=== PATIENT | female | born 1945 | race Caucasian/White ===

== ENCOUNTER 2018-04-11 17:17 | Emergency (ER) | payer MEDICARE, SELFPAY ==
[2018-04-11 17:20] VITALS: BP 173/83; PULSE 99; RESP 16; TEMP 37.4; O2SAT 95; BMI 25.7
--- NOTE | 2018-04-11 17:47 | PC.NURSE ---
hx of scoliosis. pt reports woke up monday with right scapular pain, the next day spread to her left scapular, now pain radiating up to the posterior neck. denies injuries/trauma. pt reports she has been coughing for 4 months, pain worsen with movement, better at rest. denies fever or vomiting. pt has been taking aspirin 325mg 3 tabs every 5 hours today. on asssessment, pt alert and awake, cooperative with care tender to palpate neck and bilateral scapular. pt with good strong equal octave board assembler upper extremites. +dcms intact. pt able to flex and extend , side to side of neck . c/o ipsilateral pain with movement. requesting pain medication for comfort.
--- NOTE | 2018-04-11 17:59 | ED.NECK ---
HPI - Neck Pain/Injury <LYNDA Markham - Last Filed: 04/11/18 21:51> General Chief Complaint: Neck Pain/Injury Stated Complaint: shoulder and neck pain Time Seen by Provider: 04/11/18 17:19 Source: patient Mode of arrival: ambulatory Limitations: no limitations History of Present Illness HPI Narrative: 73-year-old female with history of hypertension and is a former smoker here for complaint of pain into bilateral neck for the past couple of days. She states she woke up with a pain on the right but then it migrated over to the left side. She states that it is increased pain with movement of her head left and right. She denies any trauma to the area. She denies any strenuous activities. No falls. She denies any loss of bladder or bowel control. She is ambulatory into the emergency room. No concerns or complaints at this timeframe. Related Data Home Medications Medication Instructions Recorded Confirmed amlodipine [Norvasc] 5 mg PO DAILY 04/11/18 04/11/18 atorvastatin 20 mg PO BEDTIME 04/11/18 04/11/18 fluoxetine 60 mg PO DAILY 04/11/18 04/11/18 losartan 100 mg PO DAILY 04/11/18 04/11/18 nortriptyline 50 mg PO DAILY 04/11/18 04/11/18 quetiapine 100 mg PO DAILY 04/11/18 04/11/18 Previous Rx's Medication Instructions Recorded aspirin 81 mg PO QDAY #30 tab 12/19/15 cyclobenzaprine 10 mg PO TID PRN #15 tab 04/11/18 Allergies Allergy/AdvReac Type Severity Reaction Status Date / Time No Known Drug Allergies Allergy Verified 04/11/18 18:25 Review of Systems <LYNDA Markham - Last Filed: 04/11/18 21:51> Constitutional Denies chills, Denies fever(s), Denies lethargy and Denies weakness Eyes Denies change in vision, Denies eye discharge, Denies irritation and Denies loss of vision ENT Ears, Nose, Mouth, and Throat: Denies change in voice, Denies neck pain and Denies sore throat Cardiovascular Denies chest pain, Denies irregular heart rhythm, Denies lightheadedness, Denies palpitations, Denies dyspnea, Denies dyspnea on exertion and Denies orthopnea Respiratory Denies cough, Denies dyspnea, Denies dyspnea on exertion and Denies wheezing Gastrointestinal Gastrointestinal: Denies abdominal pain, Denies change in bowel habits, Denies diarrhea, Denies nausea and Denies vomiting Genitourinary Denies hematuria, Denies flank pain, Denies urinary incontinence and Denies urinary urgency Musculoskeletal Denies neck pain Comments: Tenderness and stiffness to bilateral sides of the neck radiating into the shoulders Integumentary/Breasts Denies pruritus, Denies erythema, Denies rash and Denies wounds Neurologic Denies loss of vision and Denies weakness Endocrine Denies palpitations Allergic/Immunologic Denies wheezing PFSH <LYNDA Markham - Last Filed: 04/11/18 21:51> Surgical History Status post laminectomy Status post tonsillectomy and adenoidectomy Family History Brother Heart disease Brother Heart disease Father Heart disease Mother Heart disease Social History Smoking Status: Former smoker Family History Brother Heart disease Brother Heart disease Father Heart disease Mother Heart disease Social History Smoking Status: Former smoker Exam <LYNDA Markham - Last Filed: 04/11/18 21:51> Initial Vital Signs Initial Vital Signs: Vital Signs Temperature 99.3 F 04/11/18 17:20 Pulse Rate 99 H 04/11/18 17:20 Respiratory Rate 16 04/11/18 17:20 Blood Pressure 173/83 H 04/11/18 17:20 Pulse Oximetry 95 04/11/18 17:20 Const General: cooperative and well developed Nutritional Appearance: well nourished Orientation: alert, awake, oriented x3 and not confused [facility] Mouth: oral mucosae normal and moist mucous membranes Eyes Conjunctivae: conjunctivae normal Sclera: sclerae normal Pupils: PERRL EOM: EOM intact bilaterally Neck Other: Tenderness on palpation into bilateral cervical paraspinals. No midline tenderness. Muscle tension to bilateral paraspinals radiating into the trapezius areas Resp Effort & Inspection: normal respiratory effort, able to speak in complete sentences, no respiratory distress and no use of accessory muscles Auscultation: clear to auscultation bilaterally, no rales, no rhonchi and no wheezes Cardio Rate: regular rate Rhythm: regular rhythm Heart Sounds: no click, no gallops, no murmurs and no rubs Pulses: normal peripheral pulses Skin General: no rashes or lesions noted, No jaundice and No petechiae Neuro General: alert, oriented x3, gait normal and no focal motor deficits Speech: speech normal <Deirc Manrique DO - Last Filed: 04/11/18 22:14> Initial Vital Signs Initial Vital Signs: Vital Signs Temperature 99.3 F 04/11/18 17:20 Pulse Rate 99 H 04/11/18 17:20 Respiratory Rate 16 04/11/18 17:20 Blood Pressure 173/83 H 04/11/18 17:20 Pulse Oximetry 95 04/11/18 17:20 Course <LYNDA Markham - Last Filed: 04/11/18 21:51> Orders Ordered: Discontinued Medications Cyclobenzaprine HCl (Flexeril) 10 mg PO NOW ONE Stop: 04/11/18 18:09 Last Admin: 04/11/18 18:17 Dose: 10 mg Ibuprofen (Advil) 400 mg PO NOW ONE Stop: 04/11/18 18:09 Last Admin: 04/11/18 18:17 Dose: 400 mg Vital Signs - 8 hr 04/11/18 17:20 04/11/18 18:20 04/11/18 18:46 Temperature 99.3 F Pulse Rate 99 H 85 80 Respiratory Rate 16 17 17 Blood Pressure 173/83 H Blood Pressure [Right Arm] 154/71 H 148/88 H Pulse Oximetry 95 93 94 <Deric Manrique DO - Last Filed: 04/11/18 22:14> Orders Ordered: Discontinued Medications Cyclobenzaprine HCl (Flexeril) 10 mg PO NOW ONE Stop: 04/11/18 18:09 Last Admin: 04/11/18 18:17 Dose: 10 mg Ibuprofen (Advil) 400 mg PO NOW ONE Stop: 04/11/18 18:09 Last Admin: 04/11/18 18:17 Dose: 400 mg Vital Signs - 8 hr 04/11/18 17:20 04/11/18 18:20 04/11/18 18:46 Temperature 99.3 F Pulse Rate 99 H 85 80 Respiratory Rate 16 17 17 Blood Pressure 173/83 H Blood Pressure [Right Arm] 154/71 H 148/88 H Pulse Oximetry 95 93 94 [facility] - Neck Pain/Injury <Surjit MurrietaLYNDA piña - Last Filed: 04/11/18 21:51> [facility] Narrative Medical decision making narrative: Signs and symptoms presents as acute torticollis/muscle strain to the paraspinals of the cervical spine. Nontraumatic injury. Will treat with cyclobenzaprine and hagp-lhq-yrmlyaq ibuprofen. May apply heat to area 20 min at a time a few times a day to help keep muscles loose. Gentle range of motion to painful areas also keep muscles loose. Follow up with primary care provider in the next few days for re-evaluation. For any worsening symptoms return to the emergency room. Discharge Plan Departure Patient Disposition: Home Clinical Impression: Acute torticollis Discharge Date/Time: 04/11/18 19:10 Interventions: ED Discharge Assessment Last Done: 04/11/18 19:26 Instructions: DI for Neck Pain Activity Restrictions/Additional Instructions: Signs and symptoms presents as acute torticollis/strain of neck muscles. Urine prescribed a muscle relaxer called cyclobenzaprine to help keep muscles list use as directed. No driving while on muscle relaxers a can make you drowsy. Also use [id number] ibuprofen for for discomfort. Gentle evpqg-re-fvuosl exercises to painful areas to help keep muscles loose. May use heat to area 20 min at a time a few times a day for the next few days also keep muscles loose. Follow up with her primary care provider. Return emergency room for any worsening symptoms. Prescriptions: New cyclobenzaprine 10 mg tablet 10 mg PO TID PRN (Reason: muscle spasm) Qty: 15 RF: 0 No Action aspirin 81 MG tablet,delayed release (DR/EC) 81 mg PO QDAY Qty: 30 RF: 0 atorvastatin 20 mg tablet 20 mg PO BEDTIME RF: 0 quetiapine 100 mg tablet 100 mg PO DAILY RF: 0 fluoxetine 20 mg tablet 60 mg PO DAILY RF: 0 nortriptyline 50 mg capsule 50 mg PO DAILY RF: 0 amlodipine [Norvasc] 5 MG tablet 5 mg PO DAILY RF: 0 losartan 100 MG tablet 100 mg PO DAILY RF: 0 Referrals: Josefina Powell MD [Primary Care Provider] - <Deric Manrique DO - Last Filed: 04/11/18 22:14> Cosign ED Attending Cosignature Attestation: I was available for consultation during this patient's emergency department encounter
[2018-04-11] MEDS: IBUPROFEN 400 MG TABLET PO (18:17)
[2018-04-11] MEDS: CYCLOBENZAPRINE 10 MG TABLET PO (18:17)
--- NOTE | 2018-04-11 18:17 | ED_ITS ---
HPI - Neck Pain/Injury <LYNDA Markham - Last Filed: 04/11/18 21:51> General Chief Complaint: Neck Pain/Injury Stated Complaint: shoulder and neck pain Time Seen by Provider: 04/11/18 17:19 Source: patient Mode of arrival: ambulatory Limitations: no limitations History of Present Illness HPI Narrative: 73-year-old female with history of hypertension and is a former smoker here for complaint of pain into bilateral neck for the past couple of days. She states she woke up with a pain on the right but then it migrated over to the left side. She states that it is increased pain with movement of her head left and right. She denies any trauma to the area. She denies any strenuous activities. No falls. She denies any loss of bladder or bowel control. She is ambulatory into the emergency room. No concerns or complaints at this timeframe. Related Data Home Medications Medication Instructions Recorded Confirmed amlodipine [Norvasc] 5 mg PO DAILY 04/11/18 04/11/18 atorvastatin 20 mg PO BEDTIME 04/11/18 04/11/18 fluoxetine 60 mg PO DAILY 04/11/18 04/11/18 losartan 100 mg PO DAILY 04/11/18 04/11/18 nortriptyline 50 mg PO DAILY 04/11/18 04/11/18 quetiapine 100 mg PO DAILY 04/11/18 04/11/18 Previous Rx's Medication Instructions Recorded aspirin 81 mg PO QDAY #30 tab 12/19/15 cyclobenzaprine 10 mg PO TID PRN #15 tab 04/11/18 Allergies Allergy/AdvReac Type Severity Reaction Status Date / Time No Known Drug Allergies Allergy Verified 04/11/18 18:25 Review of Systems <LYNDA Markham - Last Filed: 04/11/18 21:51> Constitutional Denies chills, Denies fever(s), Denies lethargy and Denies weakness Eyes Denies change in vision, Denies eye discharge, Denies irritation and Denies loss of vision ENT Ears, Nose, Mouth, and Throat: Denies change in voice, Denies neck pain and Denies sore throat Cardiovascular Denies chest pain, Denies irregular heart rhythm, Denies lightheadedness, Denies palpitations, Denies dyspnea, Denies dyspnea on exertion and Denies orthopnea Respiratory Denies cough, Denies dyspnea, Denies dyspnea on exertion and Denies wheezing Gastrointestinal Gastrointestinal: Denies abdominal pain, Denies change in bowel habits, Denies diarrhea, Denies nausea and Denies vomiting Genitourinary Denies hematuria, Denies flank pain, Denies urinary incontinence and Denies urinary urgency Musculoskeletal Denies neck pain Comments: Tenderness and stiffness to bilateral sides of the neck radiating into the shoulders Integumentary/Breasts Denies pruritus, Denies erythema, Denies rash and Denies wounds Neurologic Denies loss of vision and Denies weakness Endocrine Denies palpitations Allergic/Immunologic Denies wheezing PFSH <LYNDA Markham - Last Filed: 04/11/18 21:51> Surgical History Status post laminectomy Status post tonsillectomy and adenoidectomy Family History Brother Heart disease Brother Heart disease Father Heart disease Mother Heart disease Social History Smoking Status: Former smoker Family History Brother Heart disease Brother Heart disease Father Heart disease Mother Heart disease Social History Smoking Status: Former smoker Exam <LYNDA Markham - Last Filed: 04/11/18 21:51> Initial Vital Signs Initial Vital Signs: Vital Signs Temperature 99.3 F 04/11/18 17:20 Pulse Rate 99 H 04/11/18 17:20 Respiratory Rate 16 04/11/18 17:20 Blood Pressure 173/83 H 04/11/18 17:20 Pulse Oximetry 95 04/11/18 17:20 Const General: cooperative and well developed Nutritional Appearance: well nourished Orientation: alert, awake, oriented x3 and not confused [facility] Mouth: oral mucosae normal and moist mucous membranes Eyes Conjunctivae: conjunctivae normal Sclera: sclerae normal Pupils: PERRL EOM: EOM intact bilaterally Neck Other: Tenderness on palpation into bilateral cervical paraspinals. No midline tenderness. Muscle tension to bilateral paraspinals radiating into the trapezius areas Resp Effort & Inspection: normal respiratory effort, able to speak in complete sentences, no respiratory distress and no use of accessory muscles Auscultation: clear to auscultation bilaterally, no rales, no rhonchi and no wheezes Cardio Rate: regular rate Rhythm: regular rhythm Heart Sounds: no click, no gallops, no murmurs and no rubs Pulses: normal peripheral pulses Skin General: no rashes or lesions noted, No jaundice and No petechiae Neuro General: alert, oriented x3, gait normal and no focal motor deficits Speech: speech normal <Deric Manrique DO - Last Filed: 04/11/18 22:14> Initial Vital Signs Initial Vital Signs: Vital Signs Temperature 99.3 F 04/11/18 17:20 Pulse Rate 99 H 04/11/18 17:20 Respiratory Rate 16 04/11/18 17:20 Blood Pressure 173/83 H 04/11/18 17:20 Pulse Oximetry 95 04/11/18 17:20 Course <LYNDA Markham - Last Filed: 04/11/18 21:51> Orders Ordered: Discontinued Medications Cyclobenzaprine HCl (Flexeril) 10 mg PO NOW ONE Stop: 04/11/18 18:09 Last Admin: 04/11/18 18:17 Dose: 10 mg Ibuprofen (Advil) 400 mg PO NOW ONE Stop: 04/11/18 18:09 Last Admin: 04/11/18 18:17 Dose: 400 mg Vital Signs - 8 hr 04/11/18 17:20 04/11/18 18:20 04/11/18 18:46 Temperature 99.3 F Pulse Rate 99 H 85 80 Respiratory Rate 16 17 17 Blood Pressure 173/83 H Blood Pressure [Right Arm] 154/71 H 148/88 H Pulse Oximetry 95 93 94 <Deric Manrique DO - Last Filed: 04/11/18 22:14> Orders Ordered: Discontinued Medications Cyclobenzaprine HCl (Flexeril) 10 mg PO NOW ONE Stop: 04/11/18 18:09 Last Admin: 04/11/18 18:17 Dose: 10 mg Ibuprofen (Advil) 400 mg PO NOW ONE Stop: 04/11/18 18:09 Last Admin: 04/11/18 18:17 Dose: 400 mg Vital Signs - 8 hr 04/11/18 17:20 04/11/18 18:20 04/11/18 18:46 Temperature 99.3 F Pulse Rate 99 H 85 80 Respiratory Rate 16 17 17 Blood Pressure 173/83 H Blood Pressure [Right Arm] 154/71 H 148/88 H Pulse Oximetry 95 93 94 [facility] - Neck Pain/Injury <LYNDA Markham - Last Filed: 04/11/18 21:51> [facility] Narrative Medical decision making narrative: Signs and symptoms presents as acute torticollis/muscle strain to the paraspinals of the cervical spine. Nontraumatic injury. Will treat with cyclobenzaprine and lgyu-fuw-ndihgcp ibuprofen. May apply heat to area 20 min at a time a few times a day to help keep muscles loose. Gentle range of motion to painful areas also keep muscles loose. Follow up with primary care provider in the next few days for re- evaluation. For any worsening symptoms return to the emergency room. Discharge Plan Departure Patient Disposition: Home Clinical Impression: Acute torticollis Discharge Date/Time: 04/11/18 19:10 Interventions: ED Discharge Assessment Last Done: 04/11/18 19:26 Instructions: DI for Neck Pain Activity Restrictions/Additional Instructions: Signs and symptoms presents as acute torticollis/strain of neck muscles. Urine prescribed a muscle relaxer called cyclobenzaprine to help keep muscles list use as directed. No driving while on muscle relaxers a can make you drowsy. Also use [id number] ibuprofen for for discomfort. Gentle kkkme-oi-octuck ex ercises to painful areas to help keep muscles loose. May use heat to area 20 min at a time a few times a day for the next few days also keep muscles loose. Follow up with her primary care provider. Return emergency room for any worsening symptoms. Prescriptions: New cyclobenzaprine 10 mg tablet 10 mg PO TID PRN (Reason: muscle spasm) Qty: 15 RF: 0 No Action aspirin 81 MG tablet,delayed release (DR/EC) 81 mg PO QDAY Qty: 30 RF: 0 atorvastatin 20 mg tablet 20 mg PO BEDTIME RF: 0 quetiapine 100 mg tablet 100 mg PO DAILY RF: 0 fluoxetine 20 mg tablet 60 mg PO DAILY RF: 0 nortriptyline 50 mg capsule 50 mg PO DAILY RF: 0 amlodipine [Norvasc] 5 MG tablet 5 mg PO DAILY RF: 0 losartan 100 MG tablet 100 mg PO DAILY RF: 0 Referrals: Josefina Powell MD [Primary Care Provider] - <Deric Manrique DO - Last Filed: 04/11/18 22:14> Cosign ED Attending Cosignature Attestation: I was available for consultation during this patient's emergency department encounter
[2018-04-11 18:20] VITALS: BP 154/71; PULSE 85; RESP 17; O2SAT 93
[2018-04-11 18:46] VITALS: BP 148/88; PULSE 80; RESP 17; O2SAT 94
== END 2018-04-11 19:10 | disposition home or self-care (01) ==
PROVIDERS: Emergency Provider Nurse Practitioner Family; Family Provider Family Medicine; PCP Family Medicine
DX: M43.6 Torticollis (principal); S16.1XXA Strain of muscle, fascia and tendon at neck level, initial encounter
CPT/HCPCS: 99282; 99283

== ENCOUNTER → 2019-03-26 10:14 | Outpatient (CLI) | payer MEDICARE, SELFPAY ==
[2019-03-26 11:05] LABS: Add Manual Diff / Slide Review NO; Basophils Absolute Auto 100 /uL (0-100); Basophils Percent Auto 1.3 % (0-2); Eosinophils Absolute Auto 300 /uL (0-450); Eosinophils Percent Auto 4.2 % (2-4); Hemoglobin 12.8 g/dL (12.0-16.0); Lymphocytes Absolute Auto 1500 /uL (1100-4500); Lymphocytes Percent Auto 25.4 % (25-40); Mean Corpuscular HGB Conc 33.6 % (30-36); Mean Corpuscular Hemoglobin 31.6 PG (26-34); Mean Corpuscular Volume 93.9 fL (80-100); Monocytes Absolute Auto 500 /uL (0-900); Monocytes Percent Auto 8.8 % (3-14); Neutrophils Absolute Auto 3600 /uL (1500-7000); Neutrophils Percent Auto 60.3 % (50-75); Platelet Count 330 X10^3/uL (150-400); Red Blood Cell Count 4.05 X10^6/uL (4.0-5.2); Red Cell Distribution Width 14.2 % (11.6-14.8)
[2019-03-26 12:49] LABS: Free T3, Triiodothyronine Free 2.93 pg/mL (2.77-5.27); Free T4, Direct Thyroxine 0.77 ng/dL (0.78-2.19)
[2019-03-26 13:03] LABS: Thyroid Stimulating Hormone 3.04 uIU/mL (0.47-4.68)
== END ==
PROVIDERS: Family Provider Family Medicine; PCP Nurse Practitioner; Referring Provider Nurse Practitioner; Visit Provider Nurse Practitioner
DX: L60.3 Nail dystrophy (principal)
CPT/HCPCS: 36415; 84439; 84443; 84481; 85025

== ENCOUNTER → 2019-04-17 15:07 | Outpatient (CLI) | payer MEDICARE, SELFPAY | PROVIDERS: PCP Nurse Practitioner; Referring Provider Nurse Practitioner; Visit Provider Nurse Practitioner | DX: Z13.820 Encounter for screening for osteoporosis (principal); Z78.0 Asymptomatic menopausal state; Z87.891 Personal history of nicotine dependence | CPT/HCPCS: 77080; Q9967 ==

== ENCOUNTER 2019-04-25 13:45 | Outpatient (RCR) | payer MEDICARE, SELFPAY ==
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
--- NOTE | 2019-04-17 13:54 | PT.OPPOC ---
Physical, Occupational & Speech Therapy At [facility] Current Diagnoses Pain in right shoulder (04/16/19) Scoliosis, unspecified (04/16/19) Low back pain (04/16/19) Other female genital prolapse (04/16/19) Visit Care Team Role Provider Type LYNDA Harley Attending Provider Advanced Shirt Closer Primary Care Provider Referring Provider Specialty: [facility] Address: [address] [place] [address], [facility] Email: [email or web address] Plan Of Care PT-OP-T Assessment and Plan Start: 04/11/19 14:32 Freq: Status: Active Protocol: Document 04/11/19 14:30 [facility] (Rec: 04/17/19 09:22 [facility] [email or web address]) Physical Therapy Assessment Rehab Potential Rehabilitation Potential Excellent Evaluation Complexity Number of Personal Factors/Comorbidities 0 Number of Body Systems Impaired 1-2 Clinical Presentation at Evaluation Stable Impairments Impairments Activity Tolerance,Gait,Pain, Posture,ROM,Soft Tissue Mobility,Strength Goals Four Impairment Poor core control, complaints of fecal incontinence Short Term Goal (STG) Stephanie is educated on core stabilization exercises for both the pelvic floor and abdominal muscles for improved stabilization of the pelvic organs, pelvis and spine STG Duration 4 weeks Prison Goal (LTG) Stephanie reports a overall reduction in fecal incontinence with pelvic floor stabilization exercises LTG Duration 8 weeks Three Impairment restricted iliopsoas length on the R, limiting R leg extension with gait Short Term Goal (STG) Stephanie is able to lay the right leg fully extended in supine STG Duration 4 weeks Prison Goal (LTG) Stephanie is able to improve her mechanics for gait with improved hip extension and decreased pain with walking. LTG Duration 8 weeks Two Impairment Decreased right shoulder ROM with difficulty reaching to do her hair Short Term Goal (STG) Stephanie demonstrates a improvement with shoulder ROM to 160 degrees flexion and abduction or better and Stephanie is able to reach her hand behind her head without difficulty or pain. STG Duration 5 weeks One Impairment shoulder pain rated 6/10 and low back pain rated 4/10 Field Reporter Goal (LTG) Stephanie notes a overall decrease in pain levels by 2 points for both shoulder and LBP. She is able to increase her standing tolerance from 15 minutes to 30 minutes or greater LTG Duration 8 weeks Assessment Summary Assessment Stephanie presents to physical therapy today with signs and symptoms of chronic back pain as well as a newer onset of right sided shoulder pain. Stephanie has a history of right sided fixed scoliosis with a fusion from Cervical spine to L1. She has also undergone a laminectomy and decompression of the lumbar spine. Recently her low back began to increase in pain and now she feels pain especially with any standing greater than 15 minutes or with walking. She feels her right shoulder is dropping down and is very forward causing her complaints of pain. She is limited in her iliopsoas length on the right as compared to the left and has very limited shoulder ROM on the right side. She tests weak with MMT on the right as compared to the left for shoulder strength. Stephanie also has weakness in her core musculature and feels her low back wants to arch forward in standing. She is a good candidate for PT working on standing posture, improving shoulder position, ROM and strength, core stabilization for the lumbar spine. Physical Therapy Plan Frequency and Duration Frequency of Treatment 2x/Week Duration of Treatment 8 Plan of Care Start Date 04/11/19 Plan of Care End Date 06/06/19 Therapeutic Interventions Therapeutic Interventions Home Exercise Program, Neuromuscular Re-education, Patient/Caregiver Education, Self-Care/Home Management,Soft Tissue Mobilization, Therapeutic Exercises Modalities Biofeedback Next Visit Focus/Plan Next Note Type Treatment Note Next Visit Plan Begin TA stabilization, ROM for the lumbar spine and right shoulder, postural exercises to help correct right shoulder tightness. Plan of Care Dates Plan of Care Start Date 04/11/19 Plan of Care End Date 06/06/19 Electronically Signed by: Olivia Tan, PT 04/17/19 [id number] Please Sign and Return: I have reviewed this Plan of Care and certify that the skilled therapy services above are required to meet the patient?s needs. Physician Signature Date Printed Name and Credentials Clinical Instructor Signature Printed Name and Credentials
--- NOTE | 2019-04-17 14:10 | PT.OTN ---
Current Diagnoses Pain in right shoulder (04/16/19) Scoliosis, unspecified (04/16/19) Low back pain (04/16/19) Other female genital prolapse (04/16/19) Physical Therapy Treatment Note PT-OP-A Visit Information Start: 04/11/19 14:32 Freq: Status: Active Protocol: Document 04/16/19 13:45 [facility] (Rec: 04/17/19 14:02 [facility] [email or web address]) Out-Patient Physical Therapy Visit Information Visit Information Visit Type Treatment Note Visit Start Time 13:45 Visit Stop Time 14:30 Total Visit Minutes 45 PT-OP-B Current Condition Start: 04/11/19 14:32 Freq: Status: Active Protocol: Document 04/11/19 14:34 [facility] (Rec: 04/11/19 14:47 [facility] [id number]) Current Condition History of Current Condition Onset Date 2000 Current Complaints chronic LBP 05/23, right sided shoulder pain 07/23 History of Current Condition Has right shoulder pain has scoloisis, spinal fusion done in 1969 from cervical to L1-. In 2000 she under went lamenictomy, discectomy, and decompression. In the last year she is getting pain again . now she feels like her right shoulder is dropped and she feels crooked. Her low back will start aching with standing activities such as dishes she will have to sit after 15 minutes and walking any distance hurts . She has pain reaching with the right shoulder and reaching for her hair. She notes increased tightness in her hips on the right as compared to the left. She will complain of intermittent right sided anterior hip pain. Sitting down and relaxing helps it. pt notes she had a brain annerusion in 1996 had a horrible pain and had to have emergency surgery for her aneurysm, no side effets from that other than high blood pressure. Pt also complains of fecal incontinence. Especially in the am she will get the urge to have a bowel movement after she has been up walking around she has to get tot he bathroom very quickly or will have a accident. She was exposed to C diff and since that time 15 years ago she has had loose stool. Nuts will cause the irritation. Has had her right appendix removed . Current Functional Impairments (Reported) Functional Limitations- ADL's limited with standing greater than 15 minutes, right sided shoulder pain with any reaching and lifting over head Functional Limitations- Mobility/Gait Pain increases with walking greater than 15 minutes PT-OP-C Subjective Start: 04/11/19 14:32 Freq: Status: Active Protocol: Document 04/16/19 13:45 [facility] (Rec: 04/17/19 14:02 [facility] [email or web address]) OP-PT Subjective Patient Comments Patient Comments pt reports she has been working on her exercises at home. PT-OP-J Posture/Palpation/Skin Start: 04/11/19 14:32 Freq: Status: Active Protocol: Document 04/11/19 14:30 [facility] (Rec: 04/17/19 09:22 [facility] [email or web address]) Posture Evaluation Position Standing T-Spine Posture Fixed Scoliosis on (R) Comments Posture Comments right shoulder dropped and forward and standing with right sided scoliosis Palpation Assessment Location Two Palpation Location lumbar parspinals Palpation Findings Soft Tissue Tightness,Muscle Guarding,Tenderness One Palpation Location upper trapezius R Palpation Findings Soft Tissue Tightness,Spasm, Muscle Guarding PT-OP-K Range of Motion Start: 04/11/19 14:32 Freq: Status: Active Protocol: Document 04/11/19 14:30 [facility] (Rec: 04/17/19 09:22 [facility] [email or web address]) Lumbar Spine Range of Motion Lumbar Spine Active Testing Position Standing Flexion 40 Extension 10 Rotation Left 20 Rotation Right 20 Lateral Flexion Left 10 Lateral Flexion Right 10 ROM Limitations Soft Tissue Tightness Comments right sided scoliosis and fusion from lower cervical through the thoracic spine Shoulder Goniometric Range of Motion Shoulder Right Shoulder ROM WFL No Testing Position Standing Flexion 85 Abduction 60 External Rotation at 0 degrees Abduction 20 Internal Rotation 25 Hip Goniometric Range of Motion Hip Right Hip ROM WFL No Hip ROM Limitations Hip ROM Limitations Soft Tissue Tightness, Contracture Comments + amy test on the right, right hip is 20 degrees from neutral. PT-OP-M Strength Start: 04/11/19 14:32 Freq: Status: Active Protocol: Document 04/11/19 14:30 [facility] (Rec: 04/17/19 09:22 [facility] [email or web address]) Trunk Strength Trunk Manual Muscle Testing Testing Position Supine Flexion 3 Fair Core Stabilization poor core stabilization with a increase in lumbar lordosis with ASLR raise, difficulty recruiting the transverse abdominal musculature Shoulder Strength Shoulder Manual Muscle Testing Left Flexion 4 Good Abduction (C5) 4 Good External Rotation 4 Good Internal Rotation 4 Good Right Flexion 3- Fair- Abduction (C5) 2+ Poor+ External Rotation 3 Fair Internal Rotation 4 Good PT-OP-Q Treatments Start: 04/11/19 14:32 Freq: Status: Active Protocol: Document 04/16/19 13:45 [facility] (Rec: 04/17/19 14:02 [facility] [email or web address]) Therapeutic Exercises Supine Exercises 4 Supine Exercise Name Transverse abdominal facilitation Reps/Minutes holding 5 seconds in supine Comments with pelvic floor activation 3 Supine Exercise Name hamstring stretch with strap Reps/Minutes hold 30 seconds + Comments 3 way stretch, hamstring, adduction, abduction 2 Supine Exercise Name AAROM shoulder flexion with wand Side bilateral Reps/Minutes x 20 reps 1 Supine Exercise Name single knee to chest Side bilateral Reps/Minutes hold 60 seconds each leg Sitting Exercises 2 Sitting Exercise Name seated shoulder aziza Reps/Minutes x 4 minutes 1 Sitting Exercise Name seated scapula squeeze Side bilateral Reps/Minutes x 10 reps Standing Exercises 1 Standing Exercise Name standing pectoralis stretch PT-OP-T Assessment and Plan Start: 04/11/19 14:32 Freq: Status: Active Protocol: Document 04/16/19 14:07 [facility] (Rec: 04/17/19 14:09 [facility] [email or web address]) Physical Therapy Assessment Assessment Summary Assessment Pt tolerated all exercises today, slowly working on lumbar spine stability and stretching. Began some abdominal stabilization today with good tolerance. Trial of quadruped TA next visit Physical Therapy Plan Frequency and Duration Frequency of Treatment 2x/Week Duration of Treatment 8 Plan of Care Start Date 04/11/19 Plan of Care End Date 06/06/19 Next Visit Focus/Plan Next Note Type Treatment Note Next Visit Plan Trial of quadruped TA next visit, working on reducing the increased lumbar lordosis
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
--- NOTE | 2019-04-25 15:48 | PT.OTN ---
Current Diagnoses Pain in right shoulder (04/25/19) Scoliosis, unspecified (04/25/19) Low back pain (04/25/19) Other female genital prolapse (04/25/19) Physical Therapy Treatment Note PT-OP-A Visit Information Start: 04/11/19 14:32 Freq: Status: Active Protocol: Document 04/25/19 15:34 [facility] (Rec: 04/25/19 15:47 [facility] [email or web address]) Out-Patient Physical Therapy Visit Information Visit Information Visit Type Treatment Note Visit Start Time 13:45 Visit Stop Time 14:30 Total Visit Minutes 45 Visit Number 4 PT-OP-B Current Condition Start: 04/11/19 14:32 Freq: Status: Active Protocol: Document 04/11/19 14:34 [facility] (Rec: 04/11/19 14:47 [facility] [id number]) Current Condition History of Current Condition Onset Date 2000 Current Complaints chronic LBP 05/23, right sided shoulder pain 07/23 History of Current Condition Has right shoulder pain has scoloisis, spinal fusion done in 1969 from cervical to L1-. In 2000 she under went lamenictomy, discectomy, and decompression. In the last year she is getting pain again . now she feels like her right shoulder is dropped and she feels crooked. Her low back will start aching with standing activities such as dishes she will have to sit after 15 minutes and walking any distance hurts . She has pain reaching with the right shoulder and reaching for her hair. She notes increased tightness in her hips on the right as compared to the left. She will complain of intermittent right sided anterior hip pain. Sitting down and relaxing helps it. pt notes she had a brain annerusion in 1996 had a horrible pain and had to have emergency surgery for her aneurysm, no side effets from that other than high blood pressure. Pt also complains of fecal incontinence. Especially in the am she will get the urge to have a bowel movement after she has been up walking around she has to get tot he bathroom very quickly or will have a accident. She was exposed to C diff and since that time 15 years ago she has had loose stool. Nuts will cause the irritation. Has had her right appendix removed . Current Functional Impairments (Reported) Functional Limitations- ADL's limited with standing greater than 15 minutes, right sided shoulder pain with any reaching and lifting over head Functional Limitations- Mobility/Gait Pain increases with walking greater than 15 minutes PT-OP-C Subjective Start: 04/11/19 14:32 Freq: Status: Active Protocol: Document 04/25/19 15:34 [facility] (Rec: 04/25/19 15:47 [facility] [id number]) OP-PT Subjective Patient Comments Patient Comments Stephanie reports she is doing better overall. She is feeling ready to do her exercises on her own now PT-OP-J Posture/Palpation/Skin Start: 04/11/19 14:32 Freq: Status: Active Protocol: Document 04/11/19 14:30 [facility] (Rec: 04/17/19 09:22 [facility] [email or web address]) Posture Evaluation Position Standing T-Spine Posture Fixed Scoliosis on (R) Comments Posture Comments right shoulder dropped and forward and standing with right sided scoliosis Palpation Assessment Location Two Palpation Location lumbar parspinals Palpation Findings Soft Tissue Tightness,Muscle Guarding,Tenderness One Palpation Location upper trapezius R Palpation Findings Soft Tissue Tightness,Spasm, Muscle Guarding PT-OP-K Range of Motion Start: 04/11/19 14:32 Freq: Status: Active Protocol: Document 04/11/19 14:30 [facility] (Rec: 04/17/19 09:22 [facility] [email or web address]) Lumbar Spine Range of Motion Lumbar Spine Active Testing Position Standing Flexion 40 Extension 10 Rotation Left 20 Rotation Right 20 Lateral Flexion Left 10 Lateral Flexion Right 10 ROM Limitations Soft Tissue Tightness Comments right sided scoliosis and fusion from lower cervical through the thoracic spine Shoulder Goniometric Range of Motion Shoulder Right Shoulder ROM WFL No Testing Position Standing Flexion 85 Abduction 60 External Rotation at 0 degrees Abduction 20 Internal Rotation 25 Hip Goniometric Range of Motion Hip Right Hip ROM WFL No Hip ROM Limitations Hip ROM Limitations Soft Tissue Tightness, Contracture Comments + amy test on the right, right hip is 20 degrees from neutral. PT-OP-M Strength Start: 04/11/19 14:32 Freq: Status: Active Protocol: Document 04/11/19 14:30 [facility] (Rec: 04/17/19 09:22 [facility] [email or web address]) Trunk Strength Trunk Manual Muscle Testing Testing Position Supine Flexion 3 Fair Core Stabilization poor core stabilization with a increase in lumbar lordosis with ASLR raise, difficulty recruiting the transverse abdominal musculature Shoulder Strength Shoulder Manual Muscle Testing Left Flexion 4 Good Abduction (C5) 4 Good External Rotation 4 Good Internal Rotation 4 Good Right Flexion 3- Fair- Abduction (C5) 2+ Poor+ External Rotation 3 Fair Internal Rotation 4 Good PT-OP-Q Treatments Start: 04/11/19 14:32 Freq: Status: Active Protocol: Document 04/25/19 15:34 [facility] (Rec: 04/25/19 15:47 [facility] [email or web address]) Cardio Equipment Upper Body Ergometer (UBE) Duration (Minutes) 5 Therapeutic Exercises Supine Exercises 5 Supine Exercise Name ball squeeze with pelvic floor contraction Reps/Minutes x 10 4 Supine Exercise Name Transverse abdominal facilitation Reps/Minutes holding 5 seconds in supine Comments with pelvic floor activation 3 Supine Exercise Name hamstring stretch with strap Reps/Minutes hold 30 seconds + Comments 3 way stretch, hamstring, adduction, abduction 2 Supine Exercise Name AAROM shoulder flexion with wand Side bilateral Reps/Minutes x 20 reps 1 Supine Exercise Name single knee to chest Side bilateral Reps/Minutes hold 60 seconds each leg Sitting Exercises 2 Sitting Exercise Name seated shoulder aziza Reps/Minutes x 4 minutes 1 Sitting Exercise Name seated scapula squueze Side bilateral Reps/Minutes x 10 reps Standing Exercises 3 Standing Exercise Name standing rows Equipment Used level 1 Tb Reps/Minutes x 10 1 Standing Exercise Name standing pectoralis stretch Other Exercises rock backs Reps/Minutes x 10 reps quadruped TA Other Exercise Name quadruped TA Reps/Minutes x 10 PT-OP-T Assessment and Plan Start: 04/11/19 14:32 Freq: Status: Active Protocol: Document 04/25/19 15:34 [facility] (Rec: 04/25/19 15:47 [facility] [email or web address]) Physical Therapy Assessment Goals Four Impairment Poor core control, complaints of fecal incontinence Short Term Goal (STG) Stephanie is educated on core stabilization exercises for both the pelvic floor and abdominal muscles for improved stabilization of the pelvic organs, pelvis and spine GOOD PROGRESS STG Duration 4 weeks Intermediate Goal (LTG) Stephanie reports a overall reduction in fecal incontinence with pelvic floor stabilization exercises SOME PROGRESS LTG Duration 8 weeks Three Impairment restricted iliopsoas length on the R, limiting R leg extension with gait Short Term Goal (STG) Stephanie is able to lay the right leg fully extended in supine GOAL MET STG Duration 4 weeks Intermediate Goal (LTG) Stephanie is able to improve her mechanics for gait with improved hip extension and decreased pain with walking. EXCELLENT PROGRESS LTG Duration 8 weeks Two Impairment Decreased right shoulder ROM with difficulty reaching to do her hair Short Term Goal (STG) Stephanie demonstrates a improvement with shoulder ROM to 160 degrees flexion and abduction or better and Stephanie is able to reach her hand behind her head without difficulty or pain. EXCELLENT PROGRESS STG Duration 5 weeks One Impairment shoulder pain rated 6/10 and low back pain rated 4/10 Intermediate Goal (LTG) Stephanie notes a overall decrease in pain levels by 2 points for both shoulder and LBP. She is able to increase her standing tolerance from 15 minutes to 30 minutes or greater LTG Duration 8 weeks Progress Towards Goals Progress Towards Goals Progressing Toward Goals Assessment Summary Assessment Good overall improvements with shoulder ROM and decreased pain. Pt notes her pain in her low back is 0-1/10 and shoulder pain is 3/10/ Stephanie feels independent with her home program and will be discharged at this time Physical Therapy Plan Discharge Physical Therapy Discharge Reasons Patient Request Discharge Comments Pt feels independent with her home program and will be discharged at this time
== END 2019-04-26 08:49 ==
LOC: PHYS 13:45
PROVIDERS: PCP Nurse Practitioner; Referring Provider Nurse Practitioner; Visit Provider Nurse Practitioner
DX: N81.89 Other female genital prolapse (principal); M25.511 Pain in right shoulder; M41.9 Scoliosis, unspecified; M54.5 Low back pain
CPT/HCPCS: 97110; 97161

== ENCOUNTER → 2019-07-02 11:44 | Outpatient (CLI) | payer MEDICARE, SELFPAY ==
[2019-07-02 14:29] LABS: Free T3, Triiodothyronine Free 3.61 pg/mL (2.77-5.27); Free T4, Direct Thyroxine 0.94 ng/dL (0.78-2.19)
[2019-07-02 14:42] LABS: Thyroid Stimulating Hormone 2.69 uIU/mL (0.47-4.68)
== END ==
PROVIDERS: PCP Nurse Practitioner; Referring Provider Nurse Practitioner; Visit Provider Nurse Practitioner
DX: E03.9 Hypothyroidism, unspecified (principal)
CPT/HCPCS: 36415; 84439; 84443; 84481

== ENCOUNTER → 2019-09-19 10:20 | Outpatient (CLI) | payer MEDICARE, SELFPAY ==
[2019-09-19 10:34] LABS: Bacteria Urine None Seen; RBC Urine None Seen (0-5/HPF); WBC Urine None Seen (0-5/HPF)
[2019-09-19 11:41] LABS: Appearance Urine UA CLEAR; Bilirubin Urine UA NEGATIVE (NEGATIVE); Color Urine UA YELLOW; Glucose Urine UA NEGATIVE (Negative); Ketones Urine UA NEGATIVE (NEGATIVE); Leukocyte Esterase Urine UA NEGATIVE (NEGATIVE); Nitrite Urine UA NEGATIVE (Negative); Occult Blood Urine UA TRACE-LYSED (Negative); Protein Urine UA NEGATIVE (Negative); Specific Gravity Urine UA <=1.005 (1.000-1.035); Urobilinogen Urine UA 0.2 E.U./dL (0.2)
[2019-09-19 11:52] LABS: Culture Indicated Urine Cult Not Indicated; Urine Comments Microscopic Normal
[2019-09-19 12:07] LABS: Alanine Aminotransferase 15 IU/L (<35); Albumin 4.1 g/dL (3.5-5.0); Albumin Globulin Ratio 1.5 (1.0-2.8); Alkaline Phosphatase 131 U/L (38-126); Aspartate Aminotransferase 22 IU/L (14-36); BUN Creatinine Ratio 16.8 (6-22); Bilirubin Total 0.7 mg/dL (0.2-1.3); Blood Urea Nitrogen 16 mg/dL (7-17); Carbon Dioxide 22 mmol/L (22-32); Chloride 107 mmol/L (98-107); Cholesterol 117 mg/dL (140-199); Estimated Glomerular Filt Rate 57.7 mL/min (>60); Globulin 2.7 g/dL (1.7-4.1); Glucose 96 mg/dL (80-110); HDL Cholesterol 54 mg/dL (40-60); HEMOLYSIS < 15 (0-50); LDL Cholesterol Calculated 29 mg/dL (<100); Potassium 4.2 mmol/L (3.4-5.1); Sodium 138 mmol/L (137-145); Total Protein 6.8 g/dL (6.3-8.2); Triglycerides 169 mg/dL (35-150)
[2019-09-19 12:11] LABS: Microalbumin Urine Random 9.6 mg/dL (0-1.6)
[2019-09-19 12:27] LABS: Free T3, Triiodothyronine Free 2.78 pg/mL (2.77-5.27); Free T4, Direct Thyroxine 0.82 ng/dL (0.78-2.19)
[2019-09-19 12:41] LABS: Thyroid Stimulating Hormone 3.08 uIU/mL (0.47-4.68)
== END ==
PROVIDERS: PCP Nurse Practitioner; Referring Provider Nurse Practitioner; Visit Provider Nurse Practitioner
DX: F31.9 Bipolar disorder, unspecified (principal); F32.9 Major depressive disorder, single episode, unspecified; F41.0 Panic disorder [episodic paroxysmal anxiety]; F41.1 Generalized anxiety disorder; G47.9 Sleep disorder, unspecified; I10 Essential (primary) hypertension; Z79.899 Other long term (current) drug therapy; E78.2 Mixed hyperlipidemia; Z87.898 Personal history of other specified conditions
CPT/HCPCS: 36415; 80053; 80061; 81001; 82043; 82570; 84439; 84443; 84481

== ENCOUNTER → 2019-11-02 14:30 | Outpatient (CLI) | payer MEDICARE, SELFPAY ==
[2019-11-03 15:47] LABS: COVID19 Sendout Not Detected (Not Detect)
== END ==
PROVIDERS: PCP Nurse Practitioner; Visit Provider Physician Assistant
DX: Z11.59 Encounter for screening for other viral diseases (principal)
CPT/HCPCS: 87635

== ENCOUNTER 2019-11-05 12:10 | Day surgery (SDC) | payer MEDICARE, SELFPAY ==
[2019-11-05] VITALS (7 sets, daily range): BP systolic 147–174; BP diastolic 81–99; PULSE 77–95; RESP 12–20; TEMP 36.2–36.7; O2SAT 95–98; BMI 25.7
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
--- NOTE | 2019-11-05 13:03 | PM.OP.ENDO ---
Operative Date/Time/Diagnoses Date of procedure: 11/05/19 Time of procedure: 13:03 Pre-op diagnosis: personal history of colon polyps Post-op diagnosis: same Procedure & Clinicians Study performed: Colonoscopy Procedural sedation performed by the endoscopist Same procedure as scheduled: Yes Indications: Personal history of colon polyps Surgeon: Ruthie Childress Procedure Notes SCOAP/Timeout: Performed Procedure in detail: The patient was brought to the room and placed in left lateral decubitus position with all bony prominences padded. A time-out was performed and then the patient was given procedural sedation starting with 2 mg of Versed and 100 mcg of fentanyl. Total of 4 mg of Versed and 200 micro g of fentanyl were given for the entire procedure. Vitals were monitored throughout the procedure and remained stable. Once adequately sedated, the procedure was begun. A rectal exam was performed revealing no abnormalities. The colonoscope was then introduced to the rectum and advanced to the cecum in the usual fashion. The patient had a very tortuous colon requiring multiple maneuvers to reach the cecum safely including using the stiffener and applying counter pressure to the abdominal wall. The cecum was identified by the appendiceal orifice, the mucosal tri-fold, and the ileocecal valve. The scope was then retracted while rotating side to side and examining each mucosal fold. At the conclusion of the procedure retroflexion was performed and small grade 1-2 internal hemorrhoids without stigmata of bleeding were seen. The scope was then withdrawn from the rectum the procedure was concluded. The patient tolerated the procedure well and was transferred to the PACU in stable condition. Scope withdrawal time: 8 Sedation minutes: 18 Findings: other findings (Tortuous colon) Specimen(s): none sent Complications: none Impression: No polyps, very tortuous colon Post-procedure Recommendations: Colonscopy in 5 years (Due to personal history colon polyps) Follow up: as needed Disposition: PACU
[2019-11-05] MEDS: MIDAZOLAM 5 MG/5 ML VIAL IV (13:11)
[2019-11-05] MEDS: fentaNYL 250 MCG/5 ML INJ IV (13:11)
== END 2019-11-05 14:19 | disposition home or self-care (01) ==
PROVIDERS: PCP Nurse Practitioner; Referring Provider Surgery; Visit Provider Surgery
PROC: 0DJD8ZZ Inspection of Lower Intestinal Tract, Via Natural or Artificial Opening Endoscopic (ICD-10-PCS; CPT 45378; principal; 2019-11-05 13:00)
DX: Z12.11 Encounter for screening for malignant neoplasm of colon (principal); Z86.010 Personal history of colon polyps; M54.2 Cervicalgia; R32 Unspecified urinary incontinence; R06.02 Shortness of breath; F41.9 Anxiety disorder, unspecified; F31.9 Bipolar disorder, unspecified; K64.0 First degree hemorrhoids
CPT/HCPCS: G0105; 99152; J2250; J3010

== ENCOUNTER → 2020-03-16 13:01 | Outpatient (CLI) | payer MEDICARE, SELFPAY ==
--- NOTE | 2020-03-16 13:03 | DI.CT.S_ITS ---
PROCEDURE: CT LUMBAR SPINE WO CON INDICATIONS: Low back pain TECHNIQUE: Noncontrast 3 mm thick sections acquired from the T12 level to the sacrum. Sagittal and coronal reformats were constructed. For radiation dose reduction, the following was used: automated exposure control. COMPARISON: [facility] [place], CR, XR SCOLIOSIS STUDY, 03/10/2020, 14:12. FINDINGS: Image quality: Excellent. Bones: There is near normal bony alignment maintained by bilateral Tan rods, with a single hook seen at the longer larger diameter Tan ruth on the left and multiple upper and lower looks noted at the thinner right-sided smaller Tan ruth. The smaller ruth extends to the T12 level, the larger left-sided ruth extends almost to the mid lumbosacral spine.. No acute vertebral body compression fractures. No suspicious lytic or blastic bony lesions. No pars defects. T12-L1: Minimal disc height reduction. The lower left-sided ruth tip appears to be imbedded within the posterior elements on the left at this level. No spinal or foraminal stenosis. L1-L2: Mild disc height reduction, the lower left-sided Tan ruth tip is in apposition to the left-sided posterior elements externally, but does not appear imbedded or attached by a metallic device. Facet fusion likely has occurred at this level. No spinal or foraminal stenosis. L2-L3: The degenerative disc disease is moderately severe to severe with disc height reduction to the degree that near xslc-gm-nkxi articulation is present. There is both spinal and foraminal stenosis at this level, and prior osseous fusion or severe degenerative change appears present with mjlr-ah-zvat apposition of the facets. L3-L4: The degenerative changes at this level are severe, with riny-vd-onpe articulation. Posterior laminectomy has been performed bilaterally, narrow at the midline. There is left greater than right foraminal stenosis, and bilateral facet fusion appears to have been performed. L4-L5: At this level there is grade 1 anterolisthesis of L4 on L5, and kkxc-hu-jxmg the apposition at the facet joints, with midline laminectomy dorsal to L5 as was seen at the level above. Moderately severe foraminal stenosis is present when facet hypertrophy and subluxation is taken into account. Moderately severe spinal stenosis appears present at this level also. L5-S1: Moderately severe degenerative disc height reduction, facet osteoarthritis is near severe with near nzvg-kn-csoi articulation. Spinal stenosis is not seen but foraminal stenosis is moderate in severity bilaterally slightly greater on the right than the left. Soft tissues: No retroperitoneal masses or hematomas. Visualized aorta is normal in caliber. IMPRESSION: Extensive degenerative changes and prior operative intervention as noted, with bilateral Tan rods larger and longer on the left than the right and with prior laminectomies at least involving L4 and L5. Multilevel spinal and foraminal stenosis is present. Along multiple levels of the facet joints through the mid and low lumbosacral spine there is apposition between the articular surfaces and possible prior fusion. No acute disease is found. Dictated by: Ciro Lauren M.D. on 03/16/2020 at 15:56 Approved by: Ciro Lauren M.D. on 03/16/2020 at 16:06
== END ==
PROVIDERS: PCP Nurse Practitioner; Referring Provider Orthopaedic Surgery Orthopaedic Surgery of the Spine; Visit Provider Orthopaedic Surgery Orthopaedic Surgery of the Spine
DX: M54.5 Low back pain (principal); M47.816 Spondylosis without myelopathy or radiculopathy, lumbar region; M47.817 Spondylosis without myelopathy or radiculopathy, lumbosacral region; M48.061 Spinal stenosis, lumbar region without neurogenic claudication; M48.07 Spinal stenosis, lumbosacral region
CPT/HCPCS: 72131

== ENCOUNTER 2020-05-26 17:18 | Emergency (ER) | payer MEDICARE, SELFPAY ==
[2020-05-26 17:18] VITALS: BP 181/86; PULSE 88; RESP 16; TEMP 36.7; O2SAT 97; BMI 25.7
--- NOTE | 2020-05-26 17:31 | DI.CT.S_ITS ---
PROCEDURE: CT FACIAL BONES WO CON INDICATIONS: fall with facial injury TECHNIQUE: Noncontrast 2.5 mm thick axial images acquired from the mandible through the frontal sinuses, with coronal and sagittal reformatting. For radiation dose reduction, the following was used: automated exposure control, adjustment of mA and/or kV according to patient size. COMPARISON: None. FINDINGS: Image quality: Excellent. Bones and teeth: Depressed, comminuted bilateral nasal bone fractures are seen. Associated nasal septal fractures are seen. Orbital donnelly are intact. Sinus donnelly show no fracture or deformity. Visualized portions of the mandible demonstrate no fractures or subluxation. Zygomatic arches are intact. Pterygoid plates are intact. Visualized portions of the skull base and auditory canals are intact. Remote left craniotomy changes are seen. Sinuses: A mild amount of layering blood can be seen within the inferior right maxillary sinus. The paranasal sinuses otherwise appear clear. Soft tissues: Nasal soft tissue swelling can be seen. A mild amount soft tissue gas can be seen involving nose. Vascular: Visualized vascular structures appear normal in the absence of contrast. Bony vascular foramina and canals are intact. A left-sided phwvkk-vx-Kwhmil aneurysm clip is seen. IMPRESSION: Depressed, comminuted bilateral nasal bone fractures are seen, with associated nasal septal fractures. A small amount of right maxillary sinus blood can be seen. Associated nasal soft tissue swelling is seen, with a small amount soft tissue gas also seen. Incidental note is made of: Left frdvor-th-Zwgbho clip, with left craniotomy change Dictated by: Matias Toure M.D. on 05/26/2020 at 16:57 Approved by: Matias Toure M.D. on 05/26/2020 at 17:00
--- NOTE | 2020-05-26 17:31 | DI.CT.S_ITS ---
PROCEDURE: CT HEAD/BRAIN WO CON INDICATIONS: fall with head injury on aspirin TECHNIQUE: Noncontrast 4.5 mm thick angled axial sections acquired from the foramen magnum to the vertex, with coronal and sagittal reformats. For radiation dose reduction, the following was used: automated exposure control, adjustment of mA and/or kV according to patient size. COMPARISON: [facility], CT, ANGIO HEAD, 12/18/2015, 9:32. [facility], CT, CT FACIAL BONES WO CON, 05/26/2020, 17:40. [facility], CT, HEAD WITHOUT CONTRAST, 12/17/2015, 0:50. FINDINGS: Image quality: There is artifact associated with the metallic hardware. CSF spaces: Basal cisterns are patent. No extra-axial fluid collections. The ventricles are symmetric in size and shape. Brain: No intracranial bleeds or masses. There is cerebral volume loss for age, with resultant ventricular and sulcal prominence. There are periventricular and deep white matter chronic small vessel ischemic changes. There is intracranial internal carotid artery atherosclerosis. Symmetric basal ganglia calcification is seen, which is not regarded to be frankly pathologic. There is a stable, remote left basal ganglia lacunar infarction seen. A left carotid terminus region ginvgp-hv-Xzayqm aneurysm clip can be seen, as on series 3, image 13. Skull and face: Left-sided craniotomy changes are seen. Nasal bone fractures and nasal septal fractures are seen. Sinuses: Visualized sinuses and mastoids are clear. IMPRESSION: Nasal bone fractures and nasal septal fractures are seen. Please see the accompanying facial bone CT report. No acute intracranial hemorrhage can be seen in this patient with this given history. No acute intracranial process is seen. Left-sided aneurysm clip again noted. Remote left basal ganglia lacunar infarction. Dictated by: Matias Toure M.D. on 05/26/2020 at 16:53 Approved by: Matias Toure M.D. on 05/26/2020 at 16:57
[2020-05-26] MEDS: TET,DIPH,PERTUSS(ACELL),VAC/PF 0.5 ML SYRINGE IM (17:45)
[2020-05-26] MEDS: LIDO 1%/SOD BICARB 8.4% (10ML) 10 ML SYRINGE INJ (18:23)
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
[2020-05-26] MEDS: BACITRACIN OINT 0.9 GM PCKT 1 APPLIC TOP (18:49)
[2020-05-26 18:59] VITALS: BP 188/78; PULSE 78; RESP 14; O2SAT 98
== END 2020-05-26 18:59 | disposition home or self-care (01) ==
PROVIDERS: Emergency Provider Emergency Medicine; PCP Nurse Practitioner
DX: S02.2XXB Fracture of nasal bones, initial encounter for open fracture (principal); W19.XXXA Unspecified fall, initial encounter; Z23 Encounter for immunization
CPT/HCPCS: 12011; 70450; 70486; 90471; 99283; 99284; 90715

== ENCOUNTER → 2020-06-04 12:59 | Outpatient (CLI) | payer MEDICARE, SELFPAY ==
[2020-06-04] MEDS: COVID-19 VACC #1, MRNA(MOD) 100 MCG/0.5 ML VIAL IM (13:08)
== END ==
PROVIDERS: PCP Nurse Practitioner; Visit Provider Internal Medicine
DX: Z23 Encounter for immunization (principal)
CPT/HCPCS: 0011A; 91301

== ENCOUNTER → 2020-07-02 12:44 | Outpatient (CLI) | payer MEDICARE, SELFPAY ==
[2020-07-02] MEDS: COVID-19 VACC #2, MRNA(MOD) 100 MCG/0.5 ML VIAL IM (12:49)
== END ==
PROVIDERS: PCP Nurse Practitioner; Visit Provider Internal Medicine
DX: Z23 Encounter for immunization (principal)
CPT/HCPCS: 0012A; 91301

== ENCOUNTER → 2020-07-14 16:00 | Outpatient (CLI) | payer MEDICARE, SELFPAY ==
[2020-07-14 17:22] LABS: Add Manual Diff / Slide Review NO; Basophils Absolute Auto 100 /uL (0-100); Basophils Percent Auto 0.8 % (0-2); Eosinophils Absolute Auto 100 /uL (0-450); Eosinophils Percent Auto 0.6 % (2-4); Hematocrit 35.2 % (36-46); Hemoglobin 11.2 g/dL (12.0-16.0); Lymphocytes Absolute Auto 1200 /uL (1100-4500); Lymphocytes Percent Auto 11.2 % (25-40); Mean Corpuscular HGB Conc 31.8 % (30-36); Mean Corpuscular Hemoglobin 27.1 PG (26-34); Mean Corpuscular Volume 85.3 fL (80-100); Monocytes Absolute Auto 900 /uL (0-900); Monocytes Percent Auto 8.2 % (3-14); Neutrophils Absolute Auto 8700 /uL (1500-7000); Neutrophils Percent Auto 79.2 % (50-75); Platelet Count 410 X10^3/uL (150-400); Red Blood Cell Count 4.12 X10^6/uL (4.0-5.2); Red Cell Distribution Width 17.3 % (11.6-14.8)
[2020-07-14 18:11] LABS: PTT Partial Thromboplastin Tim 33 SECONDS (26.4-36.2)
[2020-07-14 18:46] LABS: BUN Creatinine Ratio 13.5 (6-22); Blood Urea Nitrogen 15 mg/dL (7-17); Calcium 9.4 mg/dL (8.4-10.2); Carbon Dioxide 23 mmol/L (22-32); Chloride 110 mmol/L (98-107); Glucose 109 mg/dL (80-110); Sodium 144 mmol/L (137-145)
[2020-07-14 18:52] LABS: HEMOLYSIS < 15 (0-50)
== END ==
PROVIDERS: PCP Nurse Practitioner; Referring Provider Orthopaedic Surgery Orthopaedic Surgery of the Spine; Visit Provider Orthopaedic Surgery Orthopaedic Surgery of the Spine
DX: Z01.818 Encounter for other preprocedural examination; I10 Essential (primary) hypertension; Z51.81 Encounter for therapeutic drug level monitoring; Z01.812 Encounter for preprocedural laboratory examination; E78.2 Mixed hyperlipidemia
CPT/HCPCS: 36415; 80048; 85025; 85730; 93005

== ENCOUNTER → 2020-07-21 15:59 | Outpatient (CLI) | payer MEDICARE, SELFPAY ==
[2020-07-22 14:08] LABS: Fecal Immunochemical Test Positive (Negative)
== END ==
PROVIDERS: PCP Nurse Practitioner; Referring Provider Nurse Practitioner; Visit Provider Nurse Practitioner
DX: D64.9 Anemia, unspecified (principal)
CPT/HCPCS: 82274

== ENCOUNTER → 2020-08-26 08:35 | Outpatient (CLI) | payer MEDICARE, SELFPAY ==
[2020-08-26 11:06] LABS: COVID19 -Nasal RAPID Negative (Negative)
== END ==
PROVIDERS: PCP Nurse Practitioner; Visit Provider Specialist
DX: Z20.822 Contact with and (suspected) exposure to COVID-19 (principal)
CPT/HCPCS: 87635; C9803

== ENCOUNTER 2020-08-27 08:16 | Day surgery (SDC) | payer MEDICARE, SELFPAY ==
[2020-08-27] VITALS (7 sets, daily range): BP systolic 129–158; BP diastolic 73–82; PULSE 71–95; RESP 16–20; TEMP 36.4; O2SAT 93–97; BMI 26.5
--- NOTE | 2020-08-27 | PATH_ITS ---
[facility] Accession Number: [id number] . 01 Material submitted: . PART A: gastrointestinal site - GASTRIC ULCER BIOPSY PART B: esophagus, E-G Junction - GE JUNCTION BIOPSY . 02 Diagnosis: A. Stomach, Ulcer, Biopsy: Antral and body-type mucosa with mild chronic gastritis. Negative for Helicobacter by immunohistochemistry. Negative for intestinal metaplasia. Negative for dysplasia and malignancy. . B. Gastroesophageal Junction, Biopsy: Squamocolumnar junctional mucosa with specialized intestinal metaplasia, consistent with Kelly's esophagus. Negative for dysplasia and malignancy. MRV 09/02/2020 1437 Local . 02 Electronically signed: . Veronica Piedra MD, Pathologist NPI- [id number] . 01 Gross description: . Part A: GASTRIC ULCER BIOPSY: Received in formalin are 4 fragment(s) of mcgovern, soft tissue measuring 0.3 x 0.2 x 0.2 cm to 0.3 x 0.1 x 0.1 cm submitted entirely in 1 cassette(s) Part B: GE JUNCTION BIOPSY: Received in formalin are 4 fragment(s) of mcgovern, soft tissue measuring 0.2 x 0.2 x 0.1 cm to 0.1 x 0.1 x 0.1 cm submitted entirely in 1 cassette(s) /VIELKA 08/28/2020 0311 Local . 02 Microscopic: . A. An immunohistochemical stain was performed to evaluate for Helicobacter organisms and is negative. The control stain showed appropriate reactivity. . * This test was developed and its performance characteristics determined by [facility]. It has not been cleared or approved by the U.S. Food and Drug Administration. The FDA has determined that such clearance or approval is not necessary. This test is used for clinical purposes. It should not be regarded as investigational or for research. . 02 Pathologist provided ICD-10: K22.70 . 02 CPT . 489308, 061895, [id number] Performed at: 01 [facility] [address] [id number] MD Jaspal Chase MD Phone: [phone] Performed at: [id number] [place], [place] [id number] MD Veronica Piedra MD Phone: [phone]
[2020-08-27] MEDS: LACTATED RINGERS 1,000 ML 200 ML IV (08:45)
[2020-08-27] MEDS: MIDAZOLAM 5 MG/5 ML VIAL IV (10:04)
--- NOTE | 2020-08-27 10:40 | PM.PREOP ---
Pre-operative Note COVID-19 COVID-19 status: Negative Result date/Date tested (Pos, Neg/Pending): 08/26/20 Interval Note History & Physical reviewed/Exam performed by Physician: Yes Changes to H&P: No ASA Class (for procedural sedation): II
[2020-08-27] MEDS: LIDOCAINE 4% SOLN 50 ML 20 ML TOP (10:48)
[2020-08-27] MEDS: fentaNYL 250 MCG/5 ML INJ IV (10:52)
--- NOTE | 2020-08-27 11:08 | PM.OP.ENDO ---
Operative Date/Time/Diagnoses Date of procedure: 08/27/20 Time of procedure: 11:08 Pre-op diagnosis: Anemia. Post-op diagnosis: same (Multiple small gastric ulcers. Possible Kelly's esophagus.) Procedure & Clinicians Study performed: EGD with cold biopsy. Same procedure as scheduled: Yes Indications: Determine if there is an upper GI source of anemia Surgeon: Alvarez Clement Procedure Notes SCOAP/Timeout: Performed Procedure in detail: Patient was placed in left lateral decubitus position underwent IV sedation toward with surgery consisting fentanyl and Versed. She had gargled with topical lidocaine. Bite block was inserted and the scope inserted into the esophagus. The esophagus was normal. At the GE junction at 39 cm there was some mild inflammation and a possible Schatzki ring. Scope entered the stomach which insufflated well. I noted a some small ulcers with a tiny amount of black blood sticking to their surface. The pyloric channel was patent. I passed through it into the duodenum. The duodenum was normal to the 4th part. The scope was brought back into the stomach and retroflexed. There were some also is a discrete areas of inflammation of the proximal stomach. No evidence of a hiatal hernia. I took biopsies of the 3 ulcers that I could see. Two were in the antrum and 1 near the incisura. The scope was brought up into the GE junction where additional biopsies were taken. The scope was removed the patient tolerated the procedure well. Scope withdrawal time: Not applicable Sedation minutes: 13 Findings: Kelly's esophagus (Possible. Biopsies taken.) and gastric ulcer Specimen(s): other (GE junction and ulcer biopsies) Complications: none Post-procedure Recommendations: Start medication(s) (Proton pump inhibitor) Follow up: months (1) Disposition: PACU
== END 2020-08-27 11:52 | disposition home or self-care (01) ==
PROVIDERS: PCP Nurse Practitioner; Referring Provider Specialist; Visit Provider Specialist
PROC: 0DJ08ZZ Inspection of Upper Intestinal Tract, Via Natural or Artificial Opening Endoscopic (ICD-10-PCS; CPT 43235; principal; 2020-08-27 09:15)
DX: K29.50 Unspecified chronic gastritis without bleeding (principal); K22.70 Barrett's esophagus without dysplasia; D64.9 Anemia, unspecified; F32.9 Major depressive disorder, single episode, unspecified; K25.9 Gastric ulcer, unspecified as acute or chronic, without hemorrhage or perforation
CPT/HCPCS: 43239; 99152; J2250; J3010

== ENCOUNTER → 2020-09-15 14:48 | Outpatient (CLI) | payer MEDICARE, SELFPAY ==
--- NOTE | 2020-09-15 14:50 | DI.US.S_ITS ---
PROCEDURE: US ABDOMEN COMPLETE INDICATIONS: ACITES TECHNIQUE: Real-time scanning was performed of the abdominal and retroperitoneal organs, with image documentation. COMPARISON: None. FINDINGS: Liver: Nonspecific increased hepatic parenchymal echogenicity. No focal hepatic mass. Gallbladder: Nondilated with no wall thickening or pericholecystic fluid. No shadowing gallstone or sludge. Biliary ducts: Normal caliber. Pancreas: Not well visualized. Spleen: Not enlarged. Kidneys: Normal size and appearance. No shadowing calculus or hydronephrosis. Aorta: Visualized aorta is normal in caliber at less than 3 cm. Iliacs: Proximal common iliac arteries are normal in caliber at less than 2.5 cm. IVC: Intrahepatic inferior vena cava is patent. Miscellaneous: No free abdominal fluid. IMPRESSION: Nonspecific increased hepatic parenchymal echogenicity, most likely reflective of hepatic steatosis. There is no ascites. Dictated by: Anirudh Pleitez M.D. on 09/15/2020 at 15:44 Approved by: Anirudh Pleitez M.D. on 09/15/2020 at 15:45
[2020-09-15 15:46] LABS: Appearance Urine UA CLEAR; Bilirubin Urine UA NEGATIVE (NEGATIVE); Color Urine UA YELLOW; Glucose Urine UA NEGATIVE (Negative); Ketones Urine UA NEGATIVE (NEGATIVE); Leukocyte Esterase Urine UA TRACE (NEGATIVE); Nitrite Urine UA NEGATIVE (Negative); Occult Blood Urine UA TRACE-INTACT (Negative); Protein Urine UA 2+ (Negative); Urobilinogen Urine UA 0.2 E.U./dL (0.2)
[2020-09-15 15:48] LABS: Add Manual Diff / Slide Review NO; Basophils Absolute Auto 100 /uL (0-100); Basophils Percent Auto 1.1 % (0-2); Eosinophils Absolute Auto 100 /uL (0-450); Eosinophils Percent Auto 1.5 % (2-4); Hematocrit 35.1 % (36-46); Hemoglobin 11.6 g/dL (12.0-16.0); Lymphocytes Absolute Auto 1400 /uL (1100-4500); Lymphocytes Percent Auto 18.5 % (25-40); Mean Corpuscular Hemoglobin 28.3 PG (26-34); Mean Corpuscular Volume 85.6 fL (80-100); Monocytes Absolute Auto 600 /uL (0-900); Neutrophils Absolute Auto 5300 /uL (1500-7000); Neutrophils Percent Auto 70.9 % (50-75); Platelet Count 338 X10^3/uL (150-400); Red Cell Distribution Width 17.1 % (11.6-14.8); White Blood Cell Count 7.4 X10^3/uL (4.5-11.0); pH Urine UA 6.5 (4.5-8.0)
[2020-09-15 15:54] LABS: Bacteria Urine Occasional (0-1); Culture Indicated Urine Specimen Cultured; RBC Urine 1-5/HPF (0-5/HPF); WBC Urine 1-5/HPF (0-5/HPF)
[2020-09-15 16:01] LABS: Prothrombin Time 11.6 SECONDS (10.1-12.7)
[2020-09-15 16:13] LABS: Alanine Aminotransferase 19 IU/L (<35); Albumin 4.4 g/dL (3.5-5.0); Albumin Globulin Ratio 1.5 (1.0-2.8); Alkaline Phosphatase 138 U/L (38-126); Aspartate Aminotransferase 33 IU/L (14-36); BUN Creatinine Ratio 18.2 (6-22); Bilirubin Total 0.4 mg/dL (0.2-1.3); Blood Urea Nitrogen 16 mg/dL (7-17); Calcium 8.9 mg/dL (8.4-10.2); Carbon Dioxide 24 mmol/L (22-32); Chloride 107 mmol/L (98-107); Estimated Glomerular Filt Rate > 60.0 mL/min (>60); Glucose 104 mg/dL (80-110); HEMOLYSIS < 15 (0-50); Potassium 3.9 mmol/L (3.4-5.1); Sodium 140 mmol/L (137-145); Total Protein 7.4 g/dL (6.3-8.2)
== END ==
PROVIDERS: PCP Nurse Practitioner; Referring Provider Nurse Practitioner; Visit Provider Nurse Practitioner
DX: R18.8 Other ascites (principal); D64.9 Anemia, unspecified; R30.0 Dysuria; K25.4 Chronic or unspecified gastric ulcer with hemorrhage
CPT/HCPCS: 36415; 76700; 80053; 81001; 85025; 85610; 87077; 87086; 87186

== ENCOUNTER → 2020-11-02 09:20 | Outpatient (CLI) | payer MEDICARE, SELFPAY ==
[2020-11-02 11:03] LABS: Add Manual Diff / Slide Review NO; Basophils Absolute Auto 100 /uL (0-100); Basophils Percent Auto 1.2 % (0-2); Eosinophils Absolute Auto 300 /uL (0-450); Eosinophils Percent Auto 5.4 % (2-4); Hematocrit 35.5 % (36-46); Hemoglobin 11.4 g/dL (12.0-16.0); Lymphocytes Absolute Auto 1600 /uL (1100-4500); Lymphocytes Percent Auto 24.5 % (25-40); Mean Corpuscular HGB Conc 32.2 % (30-36); Mean Corpuscular Hemoglobin 27.9 PG (26-34); Mean Corpuscular Volume 86.7 fL (80-100); Monocytes Absolute Auto 600 /uL (0-900); Monocytes Percent Auto 9.7 % (3-14); Neutrophils Absolute Auto 3800 /uL (1500-7000); Neutrophils Percent Auto 59.2 % (50-75); Platelet Count 381 X10^3/uL (150-400); Red Blood Cell Count 4.09 X10^6/uL (4.0-5.2); Red Cell Distribution Width 16.2 % (11.6-14.8); White Blood Cell Count 6.5 X10^3/uL (4.5-11.0)
[2020-11-02 12:39] LABS: BUN Creatinine Ratio 16.1 (6-22); Blood Urea Nitrogen 15 mg/dL (7-17); Calcium 8.9 mg/dL (8.4-10.2); Carbon Dioxide 27 mmol/L (22-32); Chloride 109 mmol/L (98-107); Estimated Glomerular Filt Rate 58.9 mL/min (>60); Glucose 98 mg/dL (80-110); HEMOLYSIS < 15 (0-50); Potassium 3.9 mmol/L (3.4-5.1); Sodium 142 mmol/L (137-145)
[2020-11-02 13:32] LABS: PTT Partial Thromboplastin Tim 32 SECONDS (26.4-36.2)
== END ==
PROVIDERS: PCP Nurse Practitioner; Referring Provider Nurse Practitioner; Visit Provider Nurse Practitioner
DX: Z01.812 Encounter for preprocedural laboratory examination (principal); D64.9 Anemia, unspecified; I10 Essential (primary) hypertension
CPT/HCPCS: 36415; 80048; 85025; 85730

== ENCOUNTER → 2020-12-18 10:57 | Outpatient (CLI) | payer MEDICARE, SELFPAY ==
[2020-12-18 12:58] LABS: COVID19 -Nasal RAPID POSITIVE (Negative)
== END ==
PROVIDERS: PCP Nurse Practitioner; Visit Provider Physician Assistant
DX: U07.1 COVID-19 (principal)
CPT/HCPCS: 87635; C9803

== ENCOUNTER → 2020-12-18 14:44 | Outpatient (CLI) | payer MEDICARE, SELFPAY ==
--- NOTE | 2020-12-18 | DI.CT.S_ITS ---
PROCEDURE: CT LUMBAR SPINE WO CON INDICATIONS: Spondylosis without myelopathy or radiculopathy TECHNIQUE: Noncontrast 3 mm thick sections acquired from the T12 level to the sacrum. Sagittal and coronal reformats were constructed. For radiation dose reduction, the following was used: automated exposure control. COMPARISON: [facility], CT, ABDOMEN/PELVIS WITH CONTRAST, 10/02/2013, 10:25. [facility], CT, ABDOMEN W&WO CONTRAST, 02/14/2014, 13:02. [facility], CT, CT LUMBAR SPINE WO CON, 03/16/2020, 13:15. FINDINGS: Image quality: Excellent. Bones: No acute vertebral body compression fractures. No suspicious lytic or blastic bony lesions. No pars defects. Thoracolumbar fixation hardware is partially seen. No findings of hardware failure or hardware loosening are seen. Within the lumbar spine, there has been removal of portions of the posterior elements. Bone grafting material is noted. There [id number] levoconvex scoliotic curvature is seen. There is mild retrolisthesis at the L2-L3 level. There is mild grade 1 anterolisthesis at L4-L5, without associated pars defects. T11-T12: Postoperative changes are seen posteriorly. No significant neural foraminal or central canal narrowing can be seen. T12-L1: There are postoperative changes seen posteriorly. No significant neural foraminal or central canal narrowing can be seen. L1-L2: There is mild loss of disc height. Vacuum disc phenomenon is seen at this level. A minimal Schmorl's node can be seen at the superior endplate of L2, which has a chronic appearance. No significant neural foraminal or central canal narrowing can be seen. No significant change from the prior. L2-L3: At least moderate loss of disc height and disc signal can be seen. Endplate irregularity and sclerosis can be seen. Posteriorly projected endplate osteophytes are seen. Vacuum disc phenomenon is seen at this level. Bridging endplate osteophytes are seen, which are worst on the right side, as on series 5, image 26. There is moderate to severe bilateral neural foraminal narrowing seen. Mild to severe central canal narrowing is also seen. Stable from the prior study. L3-L4: Moderate to severe loss of disc height is seen, with a degree of vertebral body bridging at this level. Bridging endplate osteophytes are seen on the right side. Posteriorly projected endplate osteophytes are seen. At least moderate facet hypertrophy is seen at this level. At least moderate bilateral neural foraminal narrowing can be seen. Mild to moderate central canal narrowing is seen. Stable from the prior study. L4-L5: Moderate to severe loss of disc height is seen. Vacuum disc phenomenon is seen at this level. Moderate to prominent facet hypertrophy is seen. There is moderate to severe right-sided and at least moderate left-sided neural foraminal narrowing seen. Moderate to severe central canal narrowing is seen. No significant change from the prior. L5-S1: Moderate to severe loss of disc height is seen. Vacuum disc phenomenon is seen at this level. Endplate irregularity and sclerosis can be seen. At least moderate facet hypertrophy is seen. There is moderate to severe bilateral neural foraminal narrowing seen, left worse than right. Moderate to severe central canal narrowing is seen. Soft tissues: No retroperitoneal masses or hematomas. Visualized aorta is normal in caliber. Atherosclerotic calcification is noted. There is a left adrenal nodule seen that measures 1.6 cm and measures 18 Hounsfield units on this noncontrast study. This is unchanged compared to the prior CT examinations from 2013 and 2014. IMPRESSION: Postoperative changes and multiple levels of degenerative change can be seen, which are similar to the prior CT examination. The [id number] levoconvex scoliotic curvature is seen. There is a left adrenal nodule seen. This is not significantly changed compared to 2014 and considered to be benign. Dictated by: Matias Toure M.D. on 12/18/2020 at 15:08 Approved by: Matias Toure M.D. on 12/18/2020 at 15:23
== END ==
PROVIDERS: PCP Nurse Practitioner; Referring Provider Orthopaedic Surgery Orthopaedic Surgery of the Spine; Visit Provider Orthopaedic Surgery Orthopaedic Surgery of the Spine
DX: M47.816 Spondylosis without myelopathy or radiculopathy, lumbar region (principal); M47.817 Spondylosis without myelopathy or radiculopathy, lumbosacral region; M41.86 Other forms of scoliosis, lumbar region; E27.9 Disorder of adrenal gland, unspecified
CPT/HCPCS: 72131

== ENCOUNTER → 2020-12-21 15:44 | Outpatient (ROUT) | payer MEDICARE, SELFPAY ==
[2020-12-21 15:48] LABS: Appearance Urine UA CLEAR; Bilirubin Urine UA NEGATIVE (NEGATIVE); Color Urine UA YELLOW; Glucose Urine UA NEGATIVE (Negative); Ketones Urine UA NEGATIVE (NEGATIVE); Leukocyte Esterase Urine UA NEGATIVE (NEGATIVE); Nitrite Urine UA NEGATIVE (Negative); Occult Blood Urine UA NEGATIVE (Negative); Protein Urine UA NEGATIVE (Negative); Specific Gravity Urine UA <=1.005 (1.000-1.035); Urobilinogen Urine UA 0.2 E.U./dL (0.2)
== END ==
PROVIDERS: PCP Nurse Practitioner; Visit Provider Nurse Practitioner
DX: R32 Unspecified urinary incontinence (principal); R39.198 Other difficulties with micturition
CPT/HCPCS: 81003

== ENCOUNTER → 2020-12-28 11:21 | Outpatient (CLI) | payer MEDICARE, SELFPAY ==
[2020-12-28 15:25] LABS: COVID19 -Nasal RAPID Negative (Negative)
== END ==
PROVIDERS: PCP Nurse Practitioner; Referring Provider Nurse Practitioner; Visit Provider Nurse Practitioner
DX: Z01.812 Encounter for preprocedural laboratory examination (principal); Z20.822 Contact with and (suspected) exposure to COVID-19
CPT/HCPCS: 87635

== ENCOUNTER → 2021-02-26 09:27 | Outpatient (CLI) | payer MEDICARE, SELFPAY ==
[2021-02-26 12:13] LABS: COVID19 -Nasal RAPID Negative (Negative)
== END ==
PROVIDERS: PCP Nurse Practitioner; Visit Provider Surgery
DX: Z01.812 Encounter for preprocedural laboratory examination (principal); Z20.822 Contact with and (suspected) exposure to COVID-19
CPT/HCPCS: 87635; C9803

== ENCOUNTER 2021-03-01 06:29 | Day surgery (SDC) | payer MEDICARE, SELFPAY ==
[2021-03-01] VITALS (8 sets, daily range): BP systolic 114–144; BP diastolic 65–76; PULSE 65–81; RESP 16–22; TEMP 36.6–36.9; O2SAT 89–97; BMI 26.5
[2021-03-01] MEDS: LACTATED RINGERS 1,000 ML 42 ML IV (07:36)
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
[2021-03-01] MEDS: LIDOCAINE 4% SOLN 50 ML 20 ML TOP (07:48)
[2021-03-01] MEDS: fentaNYL 250 MCG/5 ML INJ IV (07:51)
[2021-03-01] MEDS: MIDAZOLAM 5 MG/5 ML VIAL IV (07:51)
--- NOTE | 2021-03-01 07:58 | PM.OP.EGD ---
Operative Date/Time/Diagnoses Date of procedure: 03/01/21 Time of procedure: 07:58 Pre-op diagnosis: History of gastric ulcer, history Kelly's Post-op diagnosis: other (Gastritis) Procedure & Clinicians Study performed: Esophagoduodenoscopy Same procedure as scheduled: Yes Indications: Surveillance of gastric ulcer Surgeon: Jossue Alexandre Procedure Notes Procedure in detail: Patient placed in left lateral decubitus position. Time out was performed. Procedural sedation was administered with Versed and Fentanyl. A bite block was placed. the scope was inserted into the mouth and advanced through the esophagus and into the stomach. The stomach was notable for mild gastritis there was no distinct gastric ulcers as there was previously. The pylorus was intubated and the duodenum was normal to the 2nd portion. The scope was retroflexed within the stomach and there was a small hiatal hernia. The scope was withdrawn into the esophagus the Z line was seen at 40 cm from the incisions. There was mild inflammation of the distal esophagus consistent with her history of previous Kelly's 6 months ago. No biopsies were performed. Stomach was desufflated and scope removed. Patient tolerated procedure well. Findings: gastritis Complications: none Impression: Gastritis Post-procedure Plan for aftercare: EGD in 3 years. Start Pepcid daily Disposition: same day surgery
--- NOTE | 2021-03-01 08:11 | SUR.PHASEI ---
0803 hrs: Pt arrives PACU breathing unassisted. Placed on O2 2L NC for sats below 90.
== END 2021-03-01 08:55 | disposition home or self-care (01) ==
PROVIDERS: PCP Nurse Practitioner; Referring Provider Surgery; Visit Provider Surgery
PROC: 0DJ08ZZ Inspection of Upper Intestinal Tract, Via Natural or Artificial Opening Endoscopic (ICD-10-PCS; CPT 43235; principal; 2021-03-01 07:45)
DX: K29.70 Gastritis, unspecified, without bleeding (principal); I10 Essential (primary) hypertension; K44.9 Diaphragmatic hernia without obstruction or gangrene
CPT/HCPCS: 43235; J2250; J3010

== ENCOUNTER → 2021-05-25 14:13 | Outpatient (CLI) | payer MEDICARE, SELFPAY | PROVIDERS: PCP Nurse Practitioner; Referring Provider Nurse Practitioner; Visit Provider Nurse Practitioner | DX: Z78.0 Asymptomatic menopausal state (principal); Z13.820 Encounter for screening for osteoporosis | CPT/HCPCS: 77080; 77081 ==

== ENCOUNTER → 2021-06-02 08:56 | Outpatient (CLI) | payer MEDICARE, SELFPAY ==
[2021-06-02 10:21] LABS: Alanine Aminotransferase 18 IU/L (<35); Albumin 4.2 g/dL (3.5-5.0); Albumin Globulin Ratio 1.6 (1.0-2.8); Alkaline Phosphatase 125 U/L (38-126); Aspartate Aminotransferase 27 IU/L (14-36); BUN Creatinine Ratio 15.6 (6-22); Bilirubin Total 0.3 mg/dL (0.2-1.3); Blood Urea Nitrogen 17 mg/dL (7-17); Calcium 8.4 mg/dL (8.4-10.2); Carbon Dioxide 24 mmol/L (22-32); Chloride 111 mmol/L (98-107); Cholesterol 108 mg/dL (140-199); Estimated Glomerular Filt Rate 53 mL/min (>60); Globulin 2.6 g/dL (1.7-4.1); Glucose 96 mg/dL (80-110); HDL Cholesterol 52 mg/dL (40-60); HEMOLYSIS < 15 (0-50); LDL Cholesterol Calculated 30 mg/dL (<100); Potassium 3.9 mmol/L (3.4-5.1); Sodium 144 mmol/L (137-145); Total Protein 6.8 g/dL (6.3-8.2); Triglycerides 128 mg/dL (35-150)
== END ==
PROVIDERS: PCP Nurse Practitioner; Referring Provider Nurse Practitioner; Visit Provider Nurse Practitioner
DX: E78.2 Mixed hyperlipidemia (principal); F51.5 Nightmare disorder; F43.12 Post-traumatic stress disorder, chronic; F31.9 Bipolar disorder, unspecified
CPT/HCPCS: 36415; 80053; 80061

== ENCOUNTER → 2021-08-20 08:59 | Outpatient (CLI) | payer MEDICARE, SELFPAY ==
[2021-08-20 09:42] LABS: Glucose 113 mg/dL (80-110)
[2021-08-23 16:20] LABS: Lamotrigine Lamictal 3.5 ug/mL (2.0-20.0)
== END ==
PROVIDERS: PCP Nurse Practitioner; Referring Provider Psychiatry & Neurology Psychiatry; Visit Provider Psychiatry & Neurology Psychiatry
DX: Z79.899 Other long term (current) drug therapy (principal); F43.12 Post-traumatic stress disorder, chronic; F51.5 Nightmare disorder; F31.9 Bipolar disorder, unspecified
CPT/HCPCS: 36415; 80175; 82947

== ENCOUNTER → 2021-12-15 15:22 | Outpatient (CLI) | payer MEDICARE, SELFPAY ==
[2021-12-15 16:43] LABS: Add Manual Diff / Slide Review NO; Basophils Absolute Auto 100 /uL (0-100); Basophils Percent Auto 0.8 % (0-2); Eosinophils Absolute Auto 300 /uL (0-450); Eosinophils Percent Auto 4.7 % (2-4); Hematocrit 37.1 % (36-46); Hemoglobin 12.5 g/dL (12.0-16.0); Lymphocytes Absolute Auto 1400 /uL (1100-4500); Lymphocytes Percent Auto 21.5 % (25-40); Mean Corpuscular HGB Conc 33.8 % (30-36); Mean Corpuscular Hemoglobin 31.6 PG (26-34); Mean Corpuscular Volume 93.6 fL (80-100); Monocytes Absolute Auto 600 /uL (0-900); Monocytes Percent Auto 9.8 % (3-14); Neutrophils Absolute Auto 4100 /uL (1500-7000); Neutrophils Percent Auto 63.2 % (50-75); Platelet Count 297 X10^3/uL (150-400); Red Blood Cell Count 3.96 X10^6/uL (4.0-5.2); White Blood Cell Count 6.6 X10^3/uL (4.5-11.0)
== END ==
PROVIDERS: PCP Nurse Practitioner; Referring Provider Nurse Practitioner; Visit Provider Nurse Practitioner
DX: K92.1 Melena (principal)
CPT/HCPCS: 36415; 85025

== ENCOUNTER → 2021-12-16 09:35 | Outpatient (CLI) | payer MEDICARE, SELFPAY ==
[2021-12-17 11:50] LABS: Fecal Immunochemical Test Positive (Negative)
== END ==
PROVIDERS: PCP Nurse Practitioner; Referring Provider Nurse Practitioner; Visit Provider Nurse Practitioner
DX: K92.1 Melena (principal)
CPT/HCPCS: 82274

== ENCOUNTER → 2022-01-07 12:50 | Outpatient (CLI) | payer MEDICARE, SELFPAY ==
--- NOTE | 2022-01-07 12:51 | DI.CT.S_ITS ---
PROCEDURE: CT LUNG LOW DOSE SCREENING INDICATIONS: history of smoking x 50 yrs, 1PPD, quit 3 yrs ago, cough TECHNIQUE: Noncontrast 2.0-2.5 mm thick sections acquired from the pulmonary apices to the posterior costophrenic angles. 7 mm thick axial MIP, and 5 mm coronal and sagittal reformats were then acquired. A low radiation dose technique was utilized. COMPARISON: [facility], , CHEST 2 VIEW, 01/23/2013, 12:24. FINDINGS: Image quality: Diagnostic, given the low radiation dose technique. Lungs and pleura: No suspicious lung nodules. No pulmonary infiltrate or pleural effusion Mediastinum: Heart size is normal. There is moderate coronary artery calcification. Trace pericardial effusion. No mediastinal adenopathy by size criteria. Thoracic aorta and central pulmonary arteries are normal in size. Esophagus is normal in caliber. No hiatal hernia. Bones and chest wall: No suspicious bony lesions. No vertebral body compression fractures. Scoliosis. Degenerative changes in thoracic and lumbar spine. No axillary or supraclavicular adenopathy by size criteria. Thyroid gland is normal. Abdomen: Visualized upper abdomen solid organs and bowel loops appear normal in the absence of contrast. IMPRESSION: 1. No suspicious lung nodules. LUNG-RADS 1; recommend annual screening lung CT in 12 months. 2. Moderate coronary artery calcification. Dictated by: Kamaljit Mo M.D. on 01/07/2022 at 14:01 Approved by: Kamaljit Mo M.D. on 01/07/2022 at 14:06
== END ==
PROVIDERS: PCP Nurse Practitioner; Referring Provider Nurse Practitioner; Visit Provider Nurse Practitioner
DX: R05.9 Cough, unspecified (principal); Z87.891 Personal history of nicotine dependence; I25.10 Atherosclerotic heart disease of native coronary artery without angina pectoris
CPT/HCPCS: 71250

== ENCOUNTER → 2022-03-09 15:20 | Outpatient (CLI) | payer MEDICARE, SELFPAY ==
[2022-03-14 17:28] LABS: Lamotrigine Lamictal 6.6 ug/mL (2.0-20.0)
== END ==
PROVIDERS: PCP Nurse Practitioner; Referring Provider Psychiatry & Neurology Psychiatry; Visit Provider Psychiatry & Neurology Psychiatry
DX: F31.81 Bipolar II disorder (principal); Z79.899 Other long term (current) drug therapy
CPT/HCPCS: 36415; 80175

== ENCOUNTER → 2022-03-10 09:39 | Outpatient (CLI) | payer MEDICARE, SELFPAY ==
[2022-03-10 10:01] LABS: Appearance Urine UA CLOUDY; Bilirubin Urine UA NEGATIVE (NEGATIVE); Color Urine UA YELLOW; Glucose Urine UA NEGATIVE (Negative); Ketones Urine UA NEGATIVE (NEGATIVE); Leukocyte Esterase Urine UA NEGATIVE (NEGATIVE); Nitrite Urine UA POSITIVE (Negative); Occult Blood Urine UA NEGATIVE (Negative); Protein Urine UA 2+ (Negative); Specific Gravity Urine UA <=1.005 (1.000-1.035); Urobilinogen Urine UA 0.2 E.U./dL (0.2)
[2022-03-10 10:11] LABS: Amorphous Sediment Urine 2+; Bacteria Urine Many (>30); Calcium Oxalate Crystals Urine Moderate; RBC Urine None Seen (0-5/HPF); WBC Urine None Seen (0-5/HPF); pH Urine UA >= 9.0 (4.5-8.0)
[2022-03-10 10:12] LABS: Culture Indicated Urine Specimen Cultured
== END ==
PROVIDERS: PCP Nurse Practitioner; Referring Provider Nurse Practitioner; Visit Provider Nurse Practitioner
DX: N39.43 Post-void dribbling (principal)
CPT/HCPCS: 81001; 87077; 87086; 87186

== ENCOUNTER → 2022-05-02 10:05 | Outpatient (CLI) | payer MEDICARE, SELFPAY ==
[2022-05-02 11:43] LABS: Appearance Urine UA CLEAR; Bilirubin Urine UA NEGATIVE (NEGATIVE); Color Urine UA YELLOW; Glucose Urine UA NEGATIVE (Negative); Ketones Urine UA NEGATIVE (NEGATIVE); Leukocyte Esterase Urine UA TRACE (NEGATIVE); Nitrite Urine UA NEGATIVE (Negative); Occult Blood Urine UA NEGATIVE (Negative); Protein Urine UA TRACE (Negative); Specific Gravity Urine UA 1.015 (1.000-1.035); Urobilinogen Urine UA 0.2 E.U./dL (0.2)
[2022-05-02 12:04] LABS: Amorphous Sediment Urine 2+; Bacteria Urine Occasional (0-1); Culture Indicated Urine Specimen Cultured; RBC Urine 1-5/HPF (0-5/HPF); Squamous Epithelial Cell Urine 1-5 /HPF (0-5/HPF); Uric Acid Crystals Urine Moderate; WBC Urine 5-10/HPF (0-5/HPF)
[2022-05-02 12:06] LABS: pH Urine UA 6.5 (4.5-8.0)
== END ==
PROVIDERS: PCP Nurse Practitioner; Referring Provider Nurse Practitioner; Visit Provider Nurse Practitioner
DX: N39.0 Urinary tract infection, site not specified (principal)
CPT/HCPCS: 81001; 87086

== ENCOUNTER → 2022-05-17 09:43 | Outpatient (CLI) | payer MEDICARE, SELFPAY ==
--- NOTE | 2022-05-17 | DI.CT.S_ITS ---
PROCEDURE: CT UE RT WO CON INDICATIONS: OSTEOARTHRITIS TECHNIQUE: Noncontrast 1-1.5 mm thick sections acquired from the acromioclavicular joint to the inferior scapula, with coronal and sagittal reformatting. COMPARISON: [facility], CR, XR SHOULDER 2+ VIEWS RIGHT, 04/21/2021, 13:34. FINDINGS: Image quality: Excellent. Bones: No acute osseous fracture or dislocation. Full-thickness joint space narrowing is seen throughout the glenohumeral joint with subchondral sclerosis, subchondral cystic changes, and remodeling of the articular surfaces. There is somewhat prominent marginal osteophyte formation. No significant glenoid retroversion or anteversion is seen. Moderate degenerative changes are seen at the acromioclavicular joint. The included right-sided ribs are intact given mild respiratory motion. Thoracic spinal hardware is partially imaged with associated metal streak artifact. Soft tissues: Moderate to large glenohumeral effusion is noted. Multiple ossified intra-articular loose bodies are seen posterior to the glenohumeral joint and in the superior subscapularis recess. The largest loose body measures approximately 17 mm in greatest dimension. There is no significant rotator cuff muscle atrophy. The tendons, ligaments, labrum, and articular cartilages are not well evaluated with standard CT. The included portions of the right lung demonstrate no acute abnormality. IMPRESSION: 1. Severe glenohumeral osteoarthrosis as described in the body of the report. No significant glenoid retroversion or anteversion. 2. Moderate to large glenohumeral effusion with multiple ossified intra-articular loose bodies. 3. Moderate acromioclavicular joint osteoarthrosis. Approved by: Slava Millan M.D. on 05/17/2022 at 11:46
== END ==
PROVIDERS: PCP Nurse Practitioner; Referring Provider Orthopaedic Surgery; Visit Provider Orthopaedic Surgery
DX: M19.011 Primary osteoarthritis, right shoulder (principal); M25.411 Effusion, right shoulder
CPT/HCPCS: 73200

== ENCOUNTER 2022-05-22 10:05 | Observation (INO) | payer MEDICARE, SELFPAY ==
[2022-05-22] VITALS (16 sets, daily range): BP systolic 130–182; BP diastolic 62–87; PULSE 72–93; RESP 12–26; TEMP 36.1–37.1; O2SAT 93–99; BMI 26.1
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
--- NOTE | 2022-05-22 11:00 | DI.CT.S_ITS ---
PROCEDURE: CT ANGIO HEAD AND NECK INDICATIONS: double vision, dizzy resolved. hx aneurysm clip 1996 TECHNIQUE: Pre-contrast 4.5 mm thick sections acquired from the foramen magnum to the vertex. After the administration of intravenous contrast, 1 mm thick sections acquired from the aortic arch through the [place] of [place]. Post-contrast 4.5 mm thick sections then re-acquired from the foramen magnum to the vertex. 3-dimensional [id number] (MIP) and/or volume rendering reformats were acquired of the central intracranial vasculature and neck separately. For radiation dose reduction, the following was used: automated exposure control, adjustment of mA and/or kV according to patient size. COMPARISON: [facility], CT, ANGIO HEAD, 12/18/2015, 9:32. FINDINGS: Image quality: Excellent. BRAIN: CSF spaces: Ventricles are normal in size and shape. Basal cisterns are patent. No extra-axial fluid collections. Brain: No midline shift. No intracranial bleeds or masses. Diffuse foci of deep and superficial white matter hypoattenuation consistent with microvascular ischemic changes. Focal region of eaton-white matter differentiation loss along the posterior and medial aspect of the left occipital lobe. Skull and face: Calvarium and facial bones appear intact, without suspicious lesions. Orbits appear normal. Region of density and gas along the left side of the tongue adjacent to the maxilla. Sinuses: Sinuses and mastoids are clear. HEAD CT ANGIOGRAPHY: Anterior circulation: Intracranial internal carotid arteries are normal in size and flow. The flow within the paired anterior cerebral arteries is normal and symmetric. The flow within the middle cerebral arteries is normal and symmetric. The anterior communicating artery is seen. Postsurgical changes from clipping of a prior aneurysm off the proximal intracranial carotid artery on the left side with mild adjacent artifact. No aneurysms are seen. Posterior circulation: Visualized portions of the vertebral arteries demonstrate normal caliber, and join to form a normal appearing basilar artery. Irregular high-grade stenosis of the P2 segmental of the left posterior cerebral artery with diminutive appearance of the distal portions in relative possibly of flow within the left occipital lobe. No aneurysms are seen. NECK CT ANGIOGRAPHY: Carotid system: The great vessels demonstrate a conventional anatomy as they arise from the aortic arch. The origins of the common carotid arteries appear patent. Common carotid arteries demonstrate a normal course and caliber. Mild atherosclerotic calcifications noted at the bifurcation. Tortuous courses of the left greater than right internal cerebral artery. Focal abnormality of the distal left cervical ICA with a thickened linear abnormality. This measures approximately 6 mm in craniocaudad dimension. Posterior circulation: The origins of the vertebral arteries both appear widely patent. The more superior extracranial portions of both vertebral arteries also demonstrate normal courses and calibers. They join to form a normal appearing basilar artery. Soft tissues: Visualized neck soft tissues demonstrate no suspicious abnormalities. Bones: No suspicious bony lesions. Visualized cervical spine appears normally aligned. IMPRESSION: Findings concerning for transcortical infarction of the posteromedial aspect of the left occipital lobe. Findings concerning for high-grade stenosis of the left P2 and distal segments of the posterior cerebral artery. Focal region of abnormality within the distal left cervical internal carotid artery favored to represent a fold given tortuous course of the carotid artery. Focal region of atherosclerosis or short segment dissection not completely excluded. High density lesion along the left side of the tongue adjacent to the maxilla. This may be something within the patient's mouth. Recommend clinical correlation with direct visualization. Findings discussed over the telephone with the ordering provider Dr. Re Alexander by Dr. Daniel Bird at approximately 12:00 p.m. [place] Standard time. Any quantitative measurements of stenosis were performed using NASCET criteria. Dictated by: Daniel Bird D.O. on 05/22/2022 at 12:18 Approved by: Daniel Bird D.O. on 05/22/2022 at 12:40
[2022-05-22 11:09] LABS: Prothrombin Time 11.1 SECONDS (10.1-12.7)
[2022-05-22 11:12] LABS: PTT Partial Thromboplastin Tim 32 SECONDS (26-36)
[2022-05-22 11:13] LABS: HEMOLYSIS < 15 (0-50)
[2022-05-22 11:14] LABS: Add Manual Diff / Slide Review NO; Alanine Aminotransferase 24 IU/L (<35); Albumin 4.7 g/dL (3.5-5.0); Albumin Globulin Ratio 1.3 (1.0-2.8); Alkaline Phosphatase 144 U/L (38-126); Aspartate Aminotransferase 30 IU/L (14-36); BUN Creatinine Ratio 15.3 (6-22); Basophils Absolute Auto 100 /uL (0-100); Basophils Percent Auto 1.2 % (0-2); Bilirubin Total 0.9 mg/dL (0.2-1.3); Blood Urea Nitrogen 15 mg/dL (7-17); Calcium 9.3 mg/dL (8.4-10.2); Carbon Dioxide 25 mmol/L (22-32); Chloride 105 mmol/L (98-107); Creatine Kinase 104 U/L (30-135); Eosinophils Absolute Auto 200 /uL (0-450); Eosinophils Percent Auto 3.1 % (2-4); Estimated Glomerular Filt Rate 60 mL/min (>60); Ethanol (ETOH) < 10 mg/dL; Globulin 3.5 g/dL (1.7-4.1); Glucose 102 mg/dL (80-110); Hematocrit 38.3 % (36-46); Hemoglobin 13.2 g/dL (12.0-16.0); Lymphocytes Absolute Auto 1300 /uL (1100-4500); Mean Corpuscular HGB Conc 34.4 % (30-36); Mean Corpuscular Volume 93.2 fL (80-100); Monocytes Absolute Auto 600 /uL (0-900); Monocytes Percent Auto 9.7 % (3-14); Neutrophils Absolute Auto 4400 /uL (1500-7000); Platelet Count 324 X10^3/uL (150-400); Potassium 3.4 mmol/L (3.4-5.1); Red Blood Cell Count 4.11 X10^6/uL (4.0-5.2); Red Cell Distribution Width 14.1 % (11.6-14.8); Sodium 141 mmol/L (137-145); Total Protein 8.2 g/dL (6.3-8.2); White Blood Cell Count 6.6 X10^3/uL (4.5-11.0)
[2022-05-22 11:25] LABS: Troponin I 0.028 ng/mL (0.01-0.034)
[2022-05-22 11:28] LABS: CKMB % Relative Index 0.7 % (1.5-5.0); Creatine Kinase MB 0.73 ng/mL (<2.37)
[2022-05-22 11:50] LABS: COVID19 -Nasal RAPID Negative (Negative)
[2022-05-22 12:22] LABS: UR Morphine/Opiate cutoff 300 Negative (Negative); Ur Creatinine Normal (Normal); Ur Specific Gravity Normal (Normal); Urine Amphetamines Negative (Negative); Urine Barbiturates Negative (Negative); Urine Benzodiazepines Negative (Negative); Urine Cocaine Negative (Negative); Urine MDMA Negative (Negative); Urine Methadone Negative (Negative); Urine Methamphetamines Negative (Negative); Urine Oxycodone Negative (Negative); Urine Phencyclidine Negative (Negative); Urine Tetrahydrocannabinol Positive (Negative); Urine Tricyclic Antidepressant Positive (Negative); Urine pH Normal (Normal)
[2022-05-22 12:24] LABS: RBC Urine None Seen (0-5/HPF); WBC Urine None Seen (0-5/HPF)
[2022-05-22 12:25] LABS: Amorphous Sediment Urine 2+; Bacteria Urine None Seen
--- NOTE | 2022-05-22 14:36 | DI.MRI.S_ITS ---
PROCEDURE: MR HEAD/BRAIN WO CON INDICATIONS: 2nd diploplia, dizzy TECHNIQUE: Non-contrast axial T1 spin echo, axial T2 fast spin echo, sagittal and axial FLAIR, coronal T2 fast spin echo, axial gradient echo, axial diffusion and ADC through the brain. COMPARISON: [facility], CT, CT ANGIO HEAD AND NECK, 05/22/2022, 11:49. FINDINGS: Image quality: Excellent. CSF spaces: Ventricles appear symmetric in size and shape. Basal cisterns are patent. No extra-axial fluid collections. Brain: No intracranial bleeds or mass effects. There is cerebral volume loss for age. There are periventricular and deep white matter chronic small vessel ischemic changes. More focal region of T2 and FLAIR hyperintensity within the white matter and cortices along the medial aspect of the left occipital lobe. There is adjacent volume loss. Brainstem appears normal. Diffusion-weighted images show no acute ischemic insults. Normal intravascular flow voids are present. Skull and face: Calvarial bone marrow is normal in signal. Orbits are normal. Sinuses: Mild mucosal disease in the maxillary sinuses and ethmoid air cells. IMPRESSION: Previously noted region of infarction within medial aspect of the left occipital lobe appears chronic demonstrating gliosis without evidence of restricted diffusion. No evidence of acute ischemia. Dictated by: Daniel Bird D.O. on 05/22/2022 at 14:47 Approved by: Daniel Bird D.O. on 05/22/2022 at 14:53
[2022-05-22] MEDS: ASPIRIN 81 MG CHEW TAB 324 MG PO (15:35)
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
[2022-05-22] MEDS: ATORVASTATIN 20 MG TABLET 80 MG PO (21:25)
[2022-05-22] MEDS: INFLUENZA HD VACCINE 0.7 ML SYRINGE IM (21:26)
[2022-05-22] MEDS: lamoTRIgine 100 MG TABLET 150 MG PO (21:55)
[2022-05-22] MEDS: NORTRIPTYLINE HCL 25 MG CAPSULE 75 MG PO (21:56)
[2022-05-22] MEDS: QUETIAPINE 100 MG TABLET PO (21:56)
[2022-05-23] VITALS: BP 92/51; PULSE 80; RESP 17; TEMP 36.1; O2SAT 92
[2022-05-23 00:30] VITALS: BP 119/69; BP 87/44; BP 92/50; PULSE 72; PULSE 82; PULSE 88
[2022-05-23] MEDS: SODIUM CHLORIDE 0.9% 1,000 ML 1000 ML IV (01:03)
[2022-05-23 04:00] VITALS: BP 123/68; PULSE 70; RESP 19; TEMP 36.6; O2SAT 94
[2022-05-23 06:27] LABS: Cholesterol 108 mg/dL (140-199); HDL Cholesterol 50 mg/dL (40-60); LDL Cholesterol Calculated 36 mg/dL (<100); Triglycerides 109 mg/dL (35-150)
[2022-05-23 07:47] VITALS: BP 134/66; BP 139/70
[2022-05-23] MEDS: PANTOPRAZOLE DR 20 MG TABLET PO (07:52)
[2022-05-23 08:00] VITALS: BP 134/66; PULSE 68; RESP 18; O2SAT 98
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
[2022-05-23] MEDS: AMLODIPINE 5 MG TABLET 10 MG PO (10:21)
[2022-05-23] MEDS: ASPIRIN EC 81 MG TABLET PO (10:21)
[2022-05-23 10:22] VITALS: BP 128/71
[2022-05-23] MEDS: CLOPIDOGREL 75 MG TABLET PO (10:22)
[2022-05-23] MEDS: LOSARTAN 50 MG TABLET 100 MG PO (10:22)
--- NOTE | 2022-05-23 10:27 | CM.DANOTE ---
Patient is a 77 yo female who was admitted on 05/22/22 for Poss TIA. Pt has [facility] for insurance and her PCP is Susan Tilley. EMR was reviewed. Per MD, pt with hx of bipolar dx with hx of brain clip and hx of TIA. Pt admitted for TIA vs CVA r/o. Per MD, pt's imaging returned and stable for d/c home and no needs and no PT/OT eval needed. Pt established with Psychiatrist Dr. Duncan at [facility] for med management once every 2-3 months. SW met bedside with pt and explained role and pt confirms she lives in an apt in [place] alone and is active and independ at baseline. Pt drives, does not use DME for ambulation and states she has ambulated in hospital room and feels steady and back to baseline. Pt denies any hx of HH or SNF and states she lives across the street from the hospital in the apartment complex and also has local supportive sister who can assist if needed. Pt does not anticipate any needs at d/c and is thankful to be discharging home today. Plan: SW to follow for plan of pt discharge back home to her apartment across the street today and local sister assist if needed. No further SW needs at this time, please refer if indicated. MERLE Granda Discharge Planning/Care Management CM Discharge Assessment Start: 05/23/22 10:24 Freq: Status: Active Protocol: Document 05/23/22 10:24 BF (Rec: 05/23/22 10:27 BF [id number]) Discharge Planning Assessment Assigned Logistics Analytics Manager MERLE Townsend DPOA/Assigned Designee Name Anastacia Martin Contact Information [phone] Advance Directives? No Advance Directives on File No History Provided By Patient,Medical Record Has Patient been admitted in last 30 No days? Prior Living Arrangements Apartment/Condo Household Members none Type of transporation used prior to Drives own vehicle admit Independent with ADL's Yes Is patient alert and oriented? Yes Caregiver for Another No Barriers to Discharge No Discharge Plan Home Transportation Arrangement Pt lives across the street from the hospital, could likely walk, or sister lives locally Referrals Initiated None needed Whiteboard Updated in Patient Room with Yes name and ext. # of Logistics Analytics Manager Review Status In Process Please Provide Date Initial DC 05/23/22 Assessment Was Performed Next Review Type Continued Stay Review
--- NOTE | 2022-05-23 12:10 | PC.NURSE ---
Reviewed new medications, s/s of infection, and s/s of stroke. IV removed and pt given home medications from pharmacy. d/c via wheelchair to pov with family driving.
[2022-05-24 07:43] LABS: x Labcorp Estim. Avg Glu (eAG) 105 mg/dL (.); x Labcorp Hemoglobin A1c 5.3 % (4.8-5.6)
[2022-05-24 07:43] LABS: Labcorp Hemoglobin (Hb) A1c 5.3 % (4.8-5.6)
== END 2022-05-23 11:35 | disposition home or self-care (01) ==
LOC: ED 15:04 → AC 15:07
PROVIDERS: Nurse Practitioner Family; Admitting Provider Family Medicine; Emergency Provider Emergency Medicine; PCP Nurse Practitioner; Referring Provider Emergency Medicine; Visit Provider Family Medicine
DX: G45.9 Transient cerebral ischemic attack, unspecified (principal); R42 Dizziness and giddiness; R29.700 NIHSS score 0; I10 Essential (primary) hypertension; F31.9 Bipolar disorder, unspecified; G62.9 Polyneuropathy, unspecified; E78.5 Hyperlipidemia, unspecified; Z86.73 Personal history of transient ischemic attack (TIA), and cerebral infarction without residual deficits; Z20.822 Contact with and (suspected) exposure to COVID-19
CPT/HCPCS: 36415; 70496; 70498; 70551; 80053; 80061; 80305; 80320; 81003; 81015; 82550; 82553; 83036; 84484; 85025; 85610; 85730; 87086; 87635; 90471; 90662; 93005; 99284; 99285; C9803; G0378

== ENCOUNTER → 2022-05-31 13:20 | Outpatient (CLI) | payer MEDICARE, SELFPAY ==
[2022-05-22 16:27] VITALS: BMI 26.1
== END ==
PROVIDERS: PCP Nurse Practitioner; Visit Provider Urology
DX: N39.43 Post-void dribbling (principal); R30.0 Dysuria; Z87.440 Personal history of urinary (tract) infections; Z98.890 Other specified postprocedural states; Z86.73 Personal history of transient ischemic attack (TIA), and cerebral infarction without residual deficits
CPT/HCPCS: 51798; 81002; 87086; 99214

== ENCOUNTER → 2022-06-03 14:33 | Outpatient (CLI) | payer MEDICARE, SELFPAY ==
[2022-05-22 16:27] VITALS: BMI 26.1
[2022-06-06 18:51] LABS: Hep C Virus Ab w/Reflex Quant NEGATIVE s/c (NEGATIVE)
== END ==
PROVIDERS: PCP Nurse Practitioner; Referring Provider Nurse Practitioner; Visit Provider Nurse Practitioner
DX: Z11.59 Encounter for screening for other viral diseases (principal)
CPT/HCPCS: 36415; 86803

== ENCOUNTER → 2022-06-04 10:15 | Outpatient (CLI) | payer MEDICARE, SELFPAY ==
[2022-05-22 16:27] VITALS: BMI 26.1
[2022-06-04 10:53] LABS: Microalbumin Urine Random 8.1 mg/dL (0-1.6)
== END ==
PROVIDERS: PCP Nurse Practitioner; Referring Provider Nurse Practitioner; Visit Provider Nurse Practitioner
DX: R30.0 Dysuria (principal); I10 Essential (primary) hypertension; Z87.440 Personal history of urinary (tract) infections
CPT/HCPCS: 82043; 82570; 87077; 87086; 87186

== ENCOUNTER → 2022-07-26 12:30 | Outpatient (CLI) | payer MEDICARE, SELFPAY ==
[2022-05-22 16:27] VITALS: BMI 26.1
[2022-07-26 13:35] LABS: Add Manual Diff / Slide Review NO; Basophils Absolute Auto 200 /uL (0-100); Basophils Percent Auto 3.7 % (0-2); Eosinophils Absolute Auto 200 /uL (0-450); Eosinophils Percent Auto 3.5 % (2-4); Hematocrit 34.4 % (36-46); Hemoglobin 11.3 g/dL (12.0-16.0); Lymphocytes Absolute Auto 1700 /uL (1100-4500); Lymphocytes Percent Auto 34.4 % (25-40); Mean Corpuscular HGB Conc 32.9 % (30-36); Mean Corpuscular Hemoglobin 29.6 PG (26-34); Mean Corpuscular Volume 89.9 fL (80-100); Monocytes Absolute Auto 600 /uL (0-900); Monocytes Percent Auto 12.1 % (3-14); Neutrophils Absolute Auto 2300 /uL (1500-7000); Neutrophils Percent Auto 46.3 % (50-75); Platelet Count 402 X10^3/uL (150-400); Red Blood Cell Count 3.82 X10^6/uL (4.0-5.2); Red Cell Distribution Width 14.1 % (11.6-14.8)
[2022-07-26 13:42] LABS: Blood Urea Nitrogen 18 mg/dL (7-17); Carbon Dioxide 24 mmol/L (22-32); Chloride 106 mmol/L (98-107); Estimated Glomerular Filt Rate > 60 mL/min (>60); Glucose 100 mg/dL (80-110); HEMOLYSIS < 15 (0-50); Sodium 139 mmol/L (137-145)
[2022-07-27 03:15] LABS: Labcorp Hemoglobin (Hb) A1c 5.2 % (4.8-5.6)
== END ==
PROVIDERS: PCP Nurse Practitioner; Referring Provider Orthopaedic Surgery Orthopaedic Surgery of the Spine; Visit Provider Orthopaedic Surgery Orthopaedic Surgery of the Spine
DX: Z01.818 Encounter for other preprocedural examination (principal); R73.9 Hyperglycemia, unspecified; Z01.812 Encounter for preprocedural laboratory examination
CPT/HCPCS: 36415; 80048; 83036; 85025; 93005

== ENCOUNTER → 2022-07-27 15:37 | Outpatient (CLI) | payer MEDICARE, SELFPAY ==
[2022-05-22 16:27] VITALS: BMI 26.1
[2022-07-29 17:20] LABS: Lamotrigine Lamictal 6.6 ug/mL (2.0-20.0)
== END ==
PROVIDERS: PCP Nurse Practitioner; Referring Provider Psychiatry & Neurology Psychiatry; Visit Provider Psychiatry & Neurology Psychiatry
DX: F31.81 Bipolar II disorder (principal); Z79.899 Other long term (current) drug therapy
CPT/HCPCS: 36415; 80175

== ENCOUNTER → 2022-08-02 13:52 | Outpatient (CLI) | payer MEDICARE, SELFPAY ==
[2022-05-22 16:27] VITALS: BMI 26.1
--- NOTE | 2022-08-02 | DI.MRI.S_ITS ---
PROCEDURE: MR LUMBAR SPINE WO CON INDICATIONS: Spinal stenosis, lumbar region with neurogenic claudication TECHNIQUE: Noncontrast sagittal T1 spin echo and T2 fast echo, sagittal STIR, and T2 fast spin echo through the lumbar spine. In cases with scoliosis, additional coronal T2 fast spin echo may be performed. COMPARISON: None. FINDINGS: Image quality: Excellent. Alignment and Curvature: Leftward curvature of the lumbar spine. Grade 1 anterolisthesis of L4 on L5 due to pars defects. Grade 1 retrolisthesis of L2 on L3. Bone Marrow: Marrow is of normal overall signal. No acute vertebral body compression fractures. Postsurgical changes of the lower thoracic spine and L1. Spinal Cord: Conus medullaris terminates at the L1 level. Visualized cord demonstrates normal signal and size. Paraspinous Soft Tissues: No paravertebral masses. T12-L1: Normal appearance. L1-L2: Normal appearance. L2-L3: Severe disc height loss with disc osteophyte complex and superimposed broad-based disc bulge, ligamentum flavum hypertrophy and facet hypertrophy causing mild spinal canal narrowing and moderate to severe bilateral neural foraminal narrowing. L3-L4: Broad-based disc bulge. Mild facet arthrosis and hypertrophy. Minimal bilateral neural foraminal narrowing. L4-L5: Severe disc height loss with disc osteophyte complex and bilateral facet hypertrophy causing mild spinal canal narrowing, and moderate to severe bilateral neural foraminal narrowing. L5-S1: Severe disc height loss with disc osteophyte complex and bilateral facet hypertrophy and arthrosis. This causes moderate right and severe left neural foraminal narrowing. IMPRESSION: Multilevel degenerative disc disease and facet arthrosis, mostly resulting in multilevel moderate to moderate to severe neural foraminal narrowing as above. Grade 1 anterolisthesis of L4 on L5 secondary to pars defects. Dictated by: Surjit Gary M.D. on 08/02/2022 at 16:46 Approved by: Surjit Gary M.D. on 08/02/2022 at 16:50
== END ==
PROVIDERS: PCP Nurse Practitioner; Referring Provider Orthopaedic Surgery Orthopaedic Surgery of the Spine; Visit Provider Orthopaedic Surgery Orthopaedic Surgery of the Spine
DX: M48.062 Spinal stenosis, lumbar region with neurogenic claudication (principal); M48.07 Spinal stenosis, lumbosacral region; M43.16 Spondylolisthesis, lumbar region; M51.36 Other intervertebral disc degeneration, lumbar region; M47.816 Spondylosis without myelopathy or radiculopathy, lumbar region; M47.817 Spondylosis without myelopathy or radiculopathy, lumbosacral region
CPT/HCPCS: 72148

== ENCOUNTER → 2022-09-23 13:34 | Outpatient (CLI) | payer MEDICARE, SELFPAY ==
[2022-05-22 16:27] VITALS: BMI 26.1
--- NOTE | 2022-09-23 | DI.CT.S_ITS ---
PROCEDURE: CT LUMBAR SPINE WO CON INDICATIONS: Spinal stenosis, lumbar region TECHNIQUE: Noncontrast 3 mm thick sections acquired from the T12 level to the sacrum. Sagittal and coronal reformats were constructed. For radiation dose reduction, the following was used: automated exposure control. COMPARISON: [facility], CT, CT LUMBAR SPINE WO CON, 12/18/2020, 14:52. FINDINGS: Image quality: Excellent. Bones: There is leftward curvature of the lumbar spine. Multilevel disc disease. No acute vertebral body compression fractures. No suspicious lytic or blastic bony lesions. No pars defects. T12-L1: Postoperative changes posteriorly. No significant disc bulge. The foramina and central canal are patent. L1-L2: Postoperative changes posteriorly. Schmorl's node at the superior endplate. No significant disc bulge. The foramina and central canal are patent. L2-L3: Severe disc height loss with intradiscal gas, disc osteophytes, and facet hypertrophy cause severe bilateral foraminal stenosis. Moderate central canal stenosis. L3-L4: Severe disc height loss with intradiscal gas, disc osteophytes, and facet hypertrophy cause severe bilateral foraminal stenosis. Moderate central canal stenosis. L4-L5: Severe disc height loss with intradiscal gas, disc osteophytes, and facet hypertrophy. Grade 1 anterolisthesis. Severe right and moderate left foraminal stenosis. The central canal has severe stenosis. L5-S1: Severe disc height loss with intradiscal gas, disc osteophytes, and facet hypertrophy. Severe bilateral foraminal stenosis. The central canal has moderate stenosis. Soft tissues: No retroperitoneal masses or hematomas. Visualized aorta is normal in caliber. Left adrenal nodule is unchanged. IMPRESSION: 1. Multilevel lumbar spondylosis causing foraminal and central canal stenosis as detailed above. 2. Levoscoliotic curvature of the lumbar spine. 3. No acute abnormality or significant change compared to 12/18/2020. Dictated by: Nick Rodrigues M.D. on 09/23/2022 at 15:18 Approved by: Nick Rodrigues M.D. on 09/23/2022 at 15:27
== END ==
PROVIDERS: PCP Nurse Practitioner; Referring Provider Orthopaedic Surgery Orthopaedic Surgery of the Spine; Visit Provider Orthopaedic Surgery Orthopaedic Surgery of the Spine
DX: M47.816 Spondylosis without myelopathy or radiculopathy, lumbar region (principal); M47.817 Spondylosis without myelopathy or radiculopathy, lumbosacral region; M48.062 Spinal stenosis, lumbar region with neurogenic claudication; M48.07 Spinal stenosis, lumbosacral region
CPT/HCPCS: 72131

== ENCOUNTER 2022-10-12 06:15 | Inpatient (IN) | payer MEDICARE, SELFPAY ==
[2022-05-22 16:27] VITALS: BMI 26.1
[2022-09-21 12:50] VITALS: BMI 25.7
[2022-10-12] VITALS (21 sets, daily range): BP systolic 120–158; BP diastolic 63–88; PULSE 72–101; RESP 14–26; TEMP 35.7–36.6; O2SAT 78–99; BMI 25.6; BMI 29.4
--- NOTE | 2022-10-12 | DI.RAD.S_ITS ---
PROCEDURE: XR LUMBAR SPINE 2-3V INDICATIONS: L4-5 L5-S1 TLIF TECHNIQUE: 2 intraoperative fluoroscopic views of the lumbar spine were acquired. COMPARISON: None. FINDINGS: Intraoperative fluoroscopic images shows posterior fusion at L4-5 and L5-S1 levels with intervertebral spacer placement. IMPRESSION: Fluoro guidance was provided intraoperatively for posterior fusion at L4-5 and L5-S1 levels. Dictated by: Good Conklin M.D. on 10/12/2022 at 11:41 Approved by: Good Conklin M.D. on 10/12/2022 at 11:43
[2022-10-12] MEDS: LACTATED RINGERS 1,000 ML 42 ML IV ×2 (07:04→09:15)
[2022-10-12] MEDS: ALBUTEROL/IPRATROPIUM 3 ML AMPUL INH (07:08)
--- NOTE | 2022-10-12 07:23 | PM.PREOP ---
Pre-operative Note COVID-19 Criteria for continued procedure: Expected advancement of disease process, Possibility delay results in more complex future surgery or treatment, Increased loss of function, Continuing or worsening of significant or severe pain, Deterioration of the patient's condition or overall health and Delay expected to result in less-positive ultimate med/surg outcome Interval Note History & Physical reviewed/Exam performed by Physician: Yes Changes to H&P: No
[2022-10-12] MEDS: CEFAZOLIN 2 GM/100 ML PREMIX 100 ML IV ×2 (07:48→15:39)
[2022-10-12] MEDS: BUPIVACAINE 0.25% (PF) 60 ML, EPINEPHrine 0.15 MG INJ (08:10)
--- NOTE | 2022-10-12 08:27 | SUR.OPER ---
Prone on spine table, head in foam head support, padded chest and pelvic supports, gel pad at knees, lower legs supported by pillows; nipples, genitalia and toes free of pressure, arms secured on foam padded arm boards at <90 degrees abduction. Tape over blanket at thigh secured to table.
[2022-10-12] MEDS: BUPIVACAINE LIPOSOME 266 MG/20 ML VIAL INJ (09:15)
--- NOTE | 2022-10-12 10:50 | P.OP_ITS ---
Operative Date/Time/Diagnoses Date of procedure: 10/12/22 Time of procedure: 07:40 Pre-op diagnosis: 1. L4-5, L5-S1 spinal stenosis 2. Lumbar radiculopathy Post-op diagnosis: same Procedure & Clinicians Procedure: 1. L4-5, L5-S1 Postero-lateral and posterior interbody fusion 2. L4-5, L5-S1 interbody cage placement. 3. L4-5, L5-S1 decompressive laminectomy with bilateral facetecomies 4. L4-5, L5-S1 Posterior segmental instrumentation 5. Olive of bone marrow from iliac crest 6. Utilization of microsurgical technique and operating microscope 7. Utilization of robotic assisted navigation Same procedure as scheduled: Yes Indications: Patient has been having chronic back pain and worsening lumbar radiculopathy. Patient failed multiple conservative management with worsening pain weakness and numbness in her lower extremity. Patient has been having difficulty performing activity of daily living. After discussing risks benefits of treatment options, patient elected proceed with surgery. Surgeon: Fito Edwards Director Dietetics Department: Azael Mao Click Yes if Unassisted: No Anesthesia Type: General Operative Notes Closure Type: primary Specimen(s): none sent Prosthetic devices, grafts, tissues, transplants, or devices: Globus CREO MIS screws, Rise cages Applied: catheter Estimated Blood Loss (mL): 100 Blood products transfused: none Procedure in detail: Patient was seen in the preoperative area. Risks and benefits of the surgery was discussed with the patient. Informed consent was obtained from the patient and placed in the chart. Surgical site was marked. Patient was taken to the operative room. General anesthesia was administered. Prophylactic antibiotic was given to the patient less than 30 min before the incision was made. Patient was placed into a prone position on the Andrez table. Patient's back was then prepped and draped in the sterile fashion. Time-out was performed at this time. After patient was prepped and draped, patient's PSIS was palpated and marked bilaterally. Small 1 cm incision was made over the PSIS for placement of the reference probes. Two trocar was placed into the PSIS 1 on each side. The reference probe was attached to the trocar of the reference apparatus. At this time the C-arm imaging was used to confirm AP and lateral of L4-L5, L5- S1 vertebrae and merged the C-arm imaging using the docplanner robotic navigation system with the CT of the lumbar spine. After successful merging was completed and confirmed, skin marker was used to jesse out the skin incision using the docplanner robotic arm. Bilateral incision was made at this time. Pre templated trajectory was used and guided using the docplanner robotic navigation system for bilateral L4, L5, S1 pedicle screw placement. This was done by using the robotic arm to guide the high-speed bur to make a cortical entry point. Next a drill was placed also using the robotic arm and guided using the navigation system drilling partially through bilateral L4, L5 and S1 pedicles. Next L4, L5, S1 pedicle screws it was pre templated and measured was placed onto the power pick up truck driver and inserted into the pedicles bilaterally. After all 6 screws were placed C-arm imaging was taken of both AP and lateral to confirm the placement. Excellent placement of the screws were confirmed and a matched precisely with the pre planned screw placement using the navigation system. MARs retractor was inserted using Fortisphereivation guidence. Globus MARS retractors was placed inside the incision and docked onto the L4 and L5 lamina. Using microsurgical technique and operating microscope, a L4, L5 laminectomy and L4-5, L5-S1 facetectomy was performed using a Kerrison rongeur. The laminectomy and facetectomy was performed in order to decompress patient's cauda equina as well as the nerve roots exiting at the L4-5, L5-S1 level. Patient was found have severe lateral recess and neural foramen stenosis which was fully decompressed after the laminectomy facetectomy. More than 75% of the facets were removed during the process of decompression rendering L4-5, L5-S1 level grossly unstable and required a fusion procedure at the same time. The disc space at L4-5, L5-S1 was identified, and a total diskectomy was performed at L4-5, L5-S1 level. The endplates were decorticated using a rasp and shaver. The total diskectomy and decortication was performed at L4-5, L5-S1 level in order to to accomplish a L4- 5, L5-S1 fusion. The local bone from the laminectomy and facetectomy was saved for local bone grafting. After the total diskectomy and decortication was completed, Trifecta bone graft material was combined with local bone that was harvested earlier. At this time, a separate skin is incision was made over the iliac crest. A Jamshidi needle was inserted into the iliac crest through a separate skin incision. 5 cc of bone marrow aspiration was obtained through the separate skin incision using a Jamshidi needle from the iliac crest. The bone marrow aspiration was combined with local bone and the Trifecta bone grafting material. The bone grafting material was placed into the L4-5, L5-S1 interbody space along with a expandable cage. The cage was expanded to its maximum height using the torque limiting screwdriver. The disc preparation as well as the cage insertion were also performed under navigation guidance. After the cage was placed, AP and lateral C-arm imaging was taken to confirm placement of the cage and excellent position was confirmed. Globus MARS retractor was inserted and docked onto the L4-5, L5-S1 posterolateral gutter on the right side. Using the power drill, posterior- lateral decortication was performed at L4-5, L5-S1 level until bleeding cortical bone was identified. The remaining bone grafting material was placed into the L4-5, L5-S1 posterior lateral gutter he order to accomplish posterolateral fusion at the L4-5, L5-S1 level. At this time the tulips were attached to the L4, L5, S1 pedicle screw shanks. After measuring the length of the rods, they were inserted into the tulips of the pedicle screws and locked in place using locking caps and torque limiting screwdriver bilaterally. Total 6 caps and 2 titanium rods was used in order to complete the posterior instrumentation construct. After all the hardware was placed, and confirmed with AP and lateral C-arm imaging, the wound was then irrigated with sterile normal saline and packed with Ray-Gracie gauze for 3 min to accomplish hemostasis. After the gauze was removed the deep fascia was closed with #1 Vicryl suture. The subcutaneous layer was closed with 2-0 Vicryl. The skin was closed with skin erinn. Patient tolerated the procedure well. There were no complications. Neuro monitoring system was used to monitor patient's neurologic status throughout entire procedure. There was no disturbance of the neural monitoring signals throughout the case. The Operation could not have been safely performed without compromising the technical result or length of the procedure, without the assistance of a skilled shipping and receiving assistant. The shipping and receiving assistant was medically necessary for proper positioning, retraction and manipulation of instruments, proper exposure, surgical preparation, and manipulation of tissue. Complications: none Post-operative Condition: stable Disposition: PACU Plan for aftercare: Admit to inpatient hospital
[2022-10-12] MEDS: OXYCODONE IR 10 MG TABLET PO ×2 (13:15→19:55)
[2022-10-12] MEDS: HYDROMORPHONE 0.5 MG INJ IV (14:04)
[2022-10-12] MEDS: LACTATED RINGERS 1,000 ML 125 ML IV (14:06)
[2022-10-12] MEDS: hydrOXYzine pamoate 25 MG CAPSULE PO (14:11)
--- NOTE | 2022-10-12 15:00 | OT.IPNOTE ---
Pt going home today with 05/09 assist and home health. Defer to home health OT for goals.
--- NOTE | 2022-10-12 15:09 | P.EN_ITS ---
Event Note Event Note (Rapid Response, Code, or fall): Received call from pts RN, who stated that pt was continuing to have 10/10 pain despite oxycodone 10mg, Vistaril 25mg, and Dilaudid 0.5mg. Spoke to TYING MACHINE OPERATOR LUMBER, who said that pt did not receive Toradol postoperatively. Toradol 15mg IV ordered.
[2022-10-12] MEDS: KETOROLAC 30 MG/ML VIAL 15 MG IV (15:38)
--- NOTE | 2022-10-12 16:25 | PT-IP ANOTE ---
Patient reports 7/10 pain and does not feel ready to get up with physical therapy this afternoon. Will plan to see her for PT evaluation in the morning. She reports family plans to stay with her at home to help after discharge.
[2022-10-12] MEDS: ACETAMINOPHEN 325 MG TABLET 650 MG PO (18:43)
[2022-10-12] MEDS: DOCUSATE 100 MG CAPSULE PO (20:28)
[2022-10-12] MEDS: lamoTRIgine 100 MG TABLET 300 MG PO (20:28)
[2022-10-12] MEDS: NORTRIPTYLINE HCL 25 MG CAPSULE 75 MG PO (20:28)
[2022-10-12] MEDS: SENNOSIDES 8.6 MG TABLET 17.2 MG PO (20:28)
[2022-10-12] MEDS: QUETIAPINE 100 MG TABLET PO (20:28)
[2022-10-13] MEDS: CEFAZOLIN 2 GM/100 ML PREMIX 100 ML IV (00:13)
[2022-10-13] MEDS: OXYCODONE IR 10 MG TABLET PO ×4 (00:15→13:02)
[2022-10-13 06:27] LABS: Hematocrit 26.3 % (36-46); Hemoglobin 8.9 g/dL (12.0-16.0)
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
[2022-10-13 07:40] VITALS: BP 121/54; PULSE 85; RESP 19; TEMP 36.4; O2SAT 95
[2022-10-13] MEDS: DOCUSATE 100 MG CAPSULE PO (08:55)
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
[2022-10-13] MEDS: AMLODIPINE 5 MG TABLET PO (10:44)
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
--- NOTE | 2022-10-13 15:38 | PC.NURSE ---
Patient is A&OX 4. VSS, afebrile on RA. Patient reports pain to back more manageable this a.m. at 4/10. She is able to participate with PT and ambulate in the caicedo with FWW. She tolerates breakfast well and martínez is dc'd at 1030 a.m. AM losartan held for low diastolic BP in 50's. Patient denies dizziness. Dressing to back C/D/I. She is able to void this afternoon and is cleared for discharge home with daughter from PT/OT standpoint. KOSTA notified and received orders to d/c patient. She verbalizes understanding of site care, medications, s/sx of infection and to to notify MD, as well as follow up appointment on 10/26 in [place] with MD Edwards's office. She's escorted via w/ch to private vehicle with daughter at 1515 this afternoon for discharge home with all of her personal belongings.
== END 2022-10-13 15:15 | disposition home or self-care (01) | DRG 455 ==
PROVIDERS: Admitting Provider Orthopaedic Surgery Orthopaedic Surgery of the Spine; PCP Nurse Practitioner; Referring Provider Orthopaedic Surgery Orthopaedic Surgery of the Spine; Visit Provider Orthopaedic Surgery Orthopaedic Surgery of the Spine
PROC: 0SG00AJ Fusion of Lumbar Vertebral Joint with Interbody Fusion Device, Posterior Approach, Anterior Column, Open Approach (ICD-10-PCS; principal; 2022-10-12 07:45)
DX: M48.061 Spinal stenosis, lumbar region without neurogenic claudication (principal); M54.16 Radiculopathy, lumbar region; M48.07 Spinal stenosis, lumbosacral region; G89.18 Other acute postprocedural pain; F32.A Depression, unspecified; I10 Essential (primary) hypertension; Z87.891 Personal history of nicotine dependence
CPT/HCPCS: 36415; 72100; 76000; 85014; 85018; 97162; 97165; 97535; C1713; C9290; J0171; J0330; J0690; J1100; J1170; J1885; J2405; J2704; J3010

== ENCOUNTER → 2022-12-29 12:48 | Outpatient (CLI) | payer MEDICARE, SELFPAY ==
[2022-10-12 12:23] VITALS: BMI 29.4
--- NOTE | 2022-12-29 12:49 | DI.CT.S_ITS ---
PROCEDURE: CT LUNG LOW DOSE SCREENING INDICATIONS: History of smoking x 50 yrs, 1 ppd, quit 3 years ago, cough TECHNIQUE: Noncontrast 2.0-2.5 mm thick sections acquired from the pulmonary apices to the posterior costophrenic angles. 7 mm thick axial MIP, and 5 mm coronal and sagittal reformats were then acquired. For radiation dose reduction, the following was used: automated exposure control, adjustment of mA and/or kV according to patient size. COMPARISON: [facility], CT, CT LUNG LOW DOSE SCREENING, 01/07/2022, 13:16. FINDINGS: Image quality: Diagnostic, given the low radiation dose technique. Lungs and pleura: No suspicious pulmonary nodules. No acute airspace opacities. No pleural effusion or pneumothorax. Mediastinum: Heart size is normal. No pericardial effusion. No mediastinal adenopathy by size criteria. Thoracic aorta and central pulmonary arteries are normal in size. Esophagus is normal in caliber. No hiatal hernia. Bones and chest wall: Paired Tan rods are present throughout the thoracic spine. There is right convex scoliosis. No suspicious bony lesions. No vertebral body compression fractures. No axillary or supraclavicular adenopathy by size criteria. No thyroid nodules which require sonographic follow up, per consensus guidelines. Abdomen: Visualized upper abdomen solid organs and bowel loops appear normal in the absence of contrast. IMPRESSION: No suspicious pulmonary nodules or mass lesions. No acute airspace opacities. LUNG-RADS 1; annual CT surveillance recommended. Dictated by: Alexia Marcus M.D. on 12/29/2022 at 17:27 Approved by: Alexia Marcus M.D. on 12/29/2022 at 17:29
== END ==
PROVIDERS: Family Provider Nurse Practitioner; PCP Nurse Practitioner; Referring Provider Nurse Practitioner; Visit Provider Nurse Practitioner
DX: Z87.891 Personal history of nicotine dependence (principal); R05.9 Cough, unspecified; Z12.2 Encounter for screening for malignant neoplasm of respiratory organs
CPT/HCPCS: 71271

== ENCOUNTER 2023-02-20 16:45 | Outpatient (RCR) | payer MEDICARE, SELFPAY ==
[2022-10-12 12:23] VITALS: BMI 29.4
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
--- NOTE | 2022-12-08 18:02 | PT.OPPOC ---
Physical, Occupational & Speech Therapy At [facility] Current Diagnoses Primary osteoarthritis, right shoulder (12/08/22) Arthrodesis status (12/08/22) Visit Care Team Role Provider Type LYNDA Harley Family Provider Advanced Brake Repairer Railroad Primary Care Provider Specialty: Family Practice Address: [address] [place] [address], [id number] Email: [email or web address] Fito Edwards MD Attending Provider Physician Referring Provider Specialty: Orthopedics Orthopedic Surgery Address: [address] [place] [address], [id number] Email: [email or web address] Plan Of Care PT-OP-T Assessment and Plan Start: 12/08/22 17:27 Freq: Status: Active Protocol: Document 12/08/22 12:45 DCW (Rec: 12/08/22 18:02 DCW [id number]) Physical Therapy Assessment Rehab Potential Rehabilitation Potential Excellent Evaluation Complexity Number of Personal Factors/Comorbidities 1-2 Number of Body Systems Impaired 1-2 Clinical Presentation at Evaluation Stable Impairments Impairments Activity Tolerance,Functional Activities,Functional Mobility ,Gait,Pain,Posture,ROM, Strength Goals Three Impairment Significantly limited bilateral shoulder mobility, right worse than left Snf Goal (LTG) Pt to improve right shoulder flexion and abduction to at least 120 in order to 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 LTG Duration 02/07/23 Two Impairment Pt demonstrates increased falls risk, per TUG score (14. 41) Snf Goal (LTG) Pt to improve TUG score to a three-trial average <11 seconds in order to demonstrate decreased falls risk and improved safety LTG Duration 02/07/23 One Impairment Pt does not have an appropriate home exercise program Short Term Goal (STG) Pt to be independent and compliant with an appropriate HEP STG Duration 01/08/23 Assessment Summary Assessment Pt presents with signs and symptoms consistent with being two months s/p L4-5, L5-S1 TLIF. Pt demonstrates good improvement post-op so far, although still notable limitation with activity tolerance, gait, and an increased falls risk. Pt ambulates with a fairly slow oswald, and was noticeably fatigued at minute 4 of her 6MTW. Was able to complete without rest, but required a rest break after. Good overall LE strength to start with, tests 4/5 or 4+/5 in all tested planes. Should benefit from skilled therapeutic intervention focusing on improving activity tolerance, gait, and decreasing falls risk. Pt's right shoulder shows significant limitations, likely secondary to diagnosis of OA, even if she ends up going through with TSA, would likely benefit from as much improved strength and mobility as possible pre-op. Pt is concerned about co-pay costs, agreeable to 1x/week treatments at this time. Physical Therapy Plan Frequency and Duration Frequency of Treatment 1x/Week Plan of Care Start Date 12/08/22 Plan of Care End Date 02/07/23 Therapeutic Interventions Therapeutic Interventions Balance Training,Gait Training ,Home Exercise Program,Joint Mobilizations,Manual Therapy, Neuromuscular Re-education, Patient/Caregiver Education, Self-Care/Home Management,Soft Tissue Mobilization, Therapeutic Activities, Therapeutic Exercises Modalities Cold Pack/Ice Massage,Electric Stimulation,Hot Packs, Ultrasound Next Visit Focus/Plan Next Note Type Treatment Note Next Visit Plan Increasing activity tolerance, balance training, shoulder ROM Plan of Care Dates Plan of Care Start Date 12/08/22 Plan of Care End Date 02/07/23 Electronically Signed by: To Chinchilla, PT 12/08/22 8472 If you are in agreement with this Plan of Care, please return a signed and dated copy. I have reviewed this Plan of Care and certify that the skilled therapy services above are required to meet the patient?s needs. Physician Signature Date Printed Name and Credentials Clinical Instructor Signature Printed Name and Credentials
--- NOTE | 2022-12-30 15:18 | PT.OTN ---
Addendum entered and electronically signed by Angelica Salgado, DOMESTIC VIOLENCE COUNSELOR 12/30/22 15:59: Pt reports anterior R thigh and hip stretch during wall posture AROM. Original Note: Current Diagnoses Primary osteoarthritis, right shoulder (12/30/22) Arthrodesis status (12/30/22) Physical Therapy Treatment Note PT-OP-A Visit Information Start: 12/08/22 17:27 Freq: Status: Active Protocol: Document 12/30/22 14:29 SP (Rec: 12/30/22 15:54 SP [id number]) Out-Patient Physical Therapy Visit Information Visit Information Visit Type Treatment Note Visit Start Time 14:30 Visit Stop Time 15:18 Total Visit Minutes 48 Visit Number 2 Number of DOMESTIC VIOLENCE COUNSELOR Visits 1 Evaluation Information Evaluation Date 12/08/22 Precautions Precautions 12/30/22: pt reports Scoliosis : DOMESTIC VIOLENCE COUNSELOR noted from posterior view: L convex thoracic scoliosis curvature with elevated R shld elevation compensations. PT-OP-B Current Condition Start: 12/08/22 17:27 Freq: Status: Active Protocol: Document 12/08/22 12:45 DCW (Rec: 12/08/22 18:02 DCW [id number]) Current Condition History of Current Condition Onset Date 10/12/22 Current Complaints L4-5, L5-S1 TLIF /c posterior intrumentation History of Current Condition Pt is a 77 year old female presenting two months s/p L4-5 -S1 TLIF. Pt notes she has been feeling much better since surgery, not experiencing any radicular symptoms but is still somewhat limited in her activity. Admits she is limited with ambulation, as well as extended standing due to stiffness and pain in her low back. Feels she just needs some genreal strengthening and better endurance. Does note that she previously underwent back surgery for Leonidas Feroz placement secondary to Scoliosis in the 70s, but back surgery has come a long way since then. Additionally, referral notes right shoulder OA. Patient notes that her shoulder gives her a lot of trouble, is very limited in ROM, and she is planning on getting a TSA after she fully heals from her TLIF. Treatment Goals Patient/Caregiver Goals I want to get rid of my back pain. PT-OP-C Subjective Start: 12/08/22 17:27 Freq: Status: Active Protocol: Document 12/30/22 14:29 SP (Rec: 12/30/22 15:54 SP [id number]) OP-PT Subjective Patient Comments Patient Comments Pt reports sleeps on side and shoulder gets achy. Her back hurts at times, 2 mo s/p TLIF . Pt reports she has scoliosis and her L shoulder is always higher than R. PT-OP-E Functional Tests Start: 12/08/22 17:27 Freq: Status: Active Protocol: Document 12/08/22 12:45 DCW (Rec: 12/08/22 18:02 DCW [id number]) Functional Tests 6 Minute Walk Test Distance 920' Device Used none Comments 2.56 ft/sec 30 Second Sit to Stand Test Score x 12 repetitions Timed Up and Go (TUG) Score 14.41 Comments Three trial average (14.35, 13 .50, 15.38) PT-OP-G Mobility & Gait Start: 12/08/22 17:27 Freq: Status: Active Protocol: Document 12/08/22 12:45 DCW (Rec: 12/08/22 18:02 DCW [id number]) OP Gait Assessment Gait Gait Assistance Required: Independent Distance (Feet) 920 Assistive Devices Assistive Device None Gait Deviations General Gait Pattern Decreased Stride Length, Decreased Feet Clearance, Flexed Trunk Factors Limiting Gait Function Factors Limiting Gait Function Decreased Activity Tolerance, Pain PT-OP-K Range of Motion Start: 12/08/22 17:27 Freq: Status: Active Protocol: Document 12/08/22 12:45 DCW (Rec: 12/08/22 18:02 DCW [id number]) Shoulder Goniometric Range of Motion Shoulder Right Active Testing Position Sitting Flexion 70 Abduction 62 External Rotation at 0 degrees Abduction 24 Internal Rotation Behind Back (text) Right SI Left Active Testing Position Sitting Flexion 132 Abduction 123 External Rotation at 0 degrees Abduction 65 Internal Rotation Behind Back (text) T8 PT-OP-M Strength Start: 12/08/22 17:27 Freq: Status: Active Protocol: Document 12/08/22 12:45 DCW (Rec: 12/08/22 18:02 DCW [id number]) Hip Strength Hip Manual Muscle Testing Right Flexion (L2) 4+ Good+ Extension (S1) 4 Good Abduction 4+ Good+ Adduction 4+ Good+ External Rotation 4+ Good+ Internal Rotation 4+ Good+ Left Flexion (L2) 4 Good Extension (S1) 4 Good Abduction 4+ Good+ Adduction 4+ Good+ External Rotation 4+ Good+ Internal Rotation 4+ Good+ Knee Strength Knee Manual Muscle Testing Right Flexion (S2) 4+ Good+ Extension (L3) 4+ Good+ Left Flexion (S2) 4+ Good+ Extension (L3) 4+ Good+ Ankle/Foot Strength Ankle and Foot Manual Muscle Testing Right Dorsiflexion (L4) 4 Good Left Dorsiflexion (L4) 4 Good PT-OP-Q Treatments Start: 12/08/22 17:27 Freq: Status: Active Protocol: Document 12/30/22 14:29 SP (Rec: 12/30/22 15:54 SP [id number]) Therapeutic Exercises Supine Exercises PROM R shld Supine Exercise Name FF Side right Resistance PROM approx 80 deg Reps/Minutes 1 min Comments significant crepitus asc/desc, painfree Sidelying Exercises AAROM R shld Sidelying Exercise Name in PT: abduction Side right Resistance AAROM Equipment Used crepitus con/ecc- painfree Reps/Minutes x5 reps Comments tactile cues: inf scap glide, humerus inf glide into ABD approx 80 deg harman open book Sidelying Exercise Name trialed long arm/short hand on head Side right Resistance AROM- tactile cues Reps/Minutes x5 reps Comments little crunching painfree- hold for now ER Sidelying Exercise Name added to HEP Side right Resistance AROM approx 80* Equipment Used towel roll under arm Reps/Minutes x10 Comments painfree, good slow pacing Standing Exercises squat Standing Exercise Name check future- pt states does squat at home wall posture Standing Exercise Name added to HEP: arms at side anatomical pos palms fwd Resistance towel roll behind head distance needed Equipment Used mirror use, cued L shld down level c/R, HT L/tilt R neutral Reps/Minutes 5 reps 10 SH Comments buttocks/shld on wall, TA/LS toward wall, chin tuck CS ext toward towel shld ext Standing Exercise Name added to HEP: incorporated gentle scap retraction Side bilateral Resistance TB #2 orange Reps/Minutes x10 Comments cued tall posture, scap retract pull arms back to side legs- maintain ecc Manual Therapy Treatment Soft Tissue Mobilization R shld Body Location bicep, pec, UT, rhomoid, infrasp Mobilization Type Rolling,Sustained Pressure, Other Intensity/Depth Moderate Body Position Sidelying Comments manual STM, MWM /c scapulothoracic mob PROM . Joint Mobilizations R GH jt Joint R PROM Direction infer/posterior Grade II Body Position Hooklying Comments Discomfort posterior, ok inferior glide R scapulothoracic Direction inf/sup, proretract/retraction Grade II Body Position Sidelying Comments PROM, AAROM /c directioning Self-Care/Home Management Treatment Education Other Education Time spent use pillows for spinal alignment comfort sleeping: L side- between BLEs , under top UE, small folded towel under upperribcage/lat L scapula. Good feedback comfort response. - give image next tx if wishes. 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 LTG Duration 02/07/23 Two Impairment Pt demonstrates increased falls risk, per TUG score (14. 41) Heel Sander Rubber Goal (LTG) Pt to improve TUG score to a three-trial average <11 seconds in order to demonstrate decreased falls risk and improved safety LTG Duration 02/07/23 One Impairment Pt does not have an appropriate home exercise program Short Term Goal (STG) Pt to be independent and compliant with an appropriate HEP STG Duration 01/08/23 Assessment Summary Assessment Pt responds well to manual painfree but noted significant crepitus during RUE P/AAROM open chain supine FF and sidelying ABD but painfree reported. Good response to added side ER, resisted shld ext and wall postural awareness cueing for corrections neutral alignment, feels weird (noted L spinal scoliosis curvature). Pt would benefit from continued skilled PT to progress R shld ROM and functional strengthening activities toward activities used to do. Physical Therapy Plan Frequency and Duration Frequency of Treatment 1x/Week Plan of Care Start Date 12/08/22 Plan of Care End Date 02/07/23 Therapeutic Interventions Therapeutic Interventions Balance Training,Gait Training ,Home Exercise Program,Joint Mobilizations,Manual Therapy, Neuromuscular Re-education, Patient/Caregiver Education, Self-Care/Home Management,Soft Tissue Mobilization, Therapeutic Activities, Therapeutic Exercises Modalities Cold Pack/Ice Massage,Electric Stimulation,Hot Packs, Ultrasound Next Visit Focus/Plan Next Note Type Treatment Note Next Visit Plan Recheck HEP added last tx: shld ER, wall posture, resisted shld ext. Revisit R mod open book, shld ABD in future. Add FF supine. Add wt' d step ups, squat<>stand ( states self), shuttle recovery & Balance, sport cord. POC: Increasing activity tolerance, balance training, shoulder ROM
--- NOTE | 2023-01-13 15:58 | PT.OTN ---
Current Diagnoses Primary osteoarthritis, right shoulder (01/13/23) Arthrodesis status (01/13/23) Physical Therapy Treatment Note PT-OP-A Visit Information Start: 12/08/22 17:27 Freq: Status: Active Protocol: Document 01/13/23 15:15 DCW (Rec: 01/13/23 15:58 DCW [id number]) Out-Patient Physical Therapy Visit Information Visit Information Visit Type Treatment Note Visit Start Time 15:15 Visit Stop Time 16:00 Total Visit Minutes 45 Visit Number 3 Number of CARD SELLER Visits 0 Evaluation Information Evaluation Date 12/08/22 PT-OP-B Current Condition Start: 12/08/22 17:27 Freq: Status: Active Protocol: Document 12/08/22 12:45 DCW (Rec: 12/08/22 18:02 DCW [id number]) Current Condition History of Current Condition Onset Date 10/12/22 Current Complaints L4-5, L5-S1 TLIF /c posterior intrumentation History of Current Condition Pt is a 77 year old female presenting two months s/p L4-5 -S1 TLIF. Pt notes she has been feeling much better since surgery, not experiencing any radicular symptoms but is still somewhat limited in her activity. Admits she is limited with ambulation, as well as extended standing due to stiffness and pain in her low back. Feels she just needs some genreal strengthening and better endurance. Does note that she previously underwent back surgery for Leonidas Feroz placement secondary to Scoliosis in the 70s, but back surgery has come a long way since then. Additionally, referral notes right shoulder OA. Patient notes that her shoulder gives her a lot of trouble, is very limited in ROM, and she is planning on getting a TSA after she fully heals from her TLIF. Treatment Goals Patient/Caregiver Goals I want to get rid of my back pain. PT-OP-C Subjective Start: 12/08/22 17:27 Freq: Status: Active Protocol: Document 01/13/23 15:15 DCW (Rec: 01/13/23 15:58 DCW [id number]) OP-PT Subjective Patient Comments Patient Comments Pt notes she has been doing her home exercises. Admits her shoulder is still bothering her. PT-OP-E Functional Tests Start: 12/08/22 17:27 Freq: Status: Active Protocol: Document 12/08/22 12:45 DCW (Rec: 12/08/22 18:02 DCW [id number]) Functional Tests 6 Minute Walk Test Distance 920' Device Used none Comments 2.56 ft/sec 30 Second Sit to Stand Test Score x 12 repetitions Timed Up and Go (TUG) Score 14.41 Comments Three trial average (14.35, 13 .50, 15.38) PT-OP-G Mobility & Gait Start: 12/08/22 17:27 Freq: Status: Active Protocol: Document 12/08/22 12:45 DCW (Rec: 12/08/22 18:02 DCW [id number]) OP Gait Assessment Gait Gait Assistance Required: Independent Distance (Feet) 920 Assistive Devices Assistive Device None Gait Deviations General Gait Pattern Decreased Stride Length, Decreased Feet Clearance, Flexed Trunk Factors Limiting Gait Function Factors Limiting Gait Function Decreased Activity Tolerance, Pain PT-OP-K Range of Motion Start: 12/08/22 17:27 Freq: Status: Active Protocol: Document 12/08/22 12:45 DCW (Rec: 12/08/22 18:02 DCW [id number]) Shoulder Goniometric Range of Motion Shoulder Right Active Testing Position Sitting Flexion 70 Abduction 62 External Rotation at 0 degrees Abduction 24 Internal Rotation Behind Back (text) Right SI Left Active Testing Position Sitting Flexion 132 Abduction 123 External Rotation at 0 degrees Abduction 65 Internal Rotation Behind Back (text) T8 PT-OP-M Strength Start: 12/08/22 17:27 Freq: Status: Active Protocol: Document 12/08/22 12:45 DCW (Rec: 12/08/22 18:02 DCW [id number]) Hip Strength Hip Manual Muscle Testing Right Flexion (L2) 4+ Good+ Extension (S1) 4 Good Abduction 4+ Good+ Adduction 4+ Good+ External Rotation 4+ Good+ Internal Rotation 4+ Good+ Left Flexion (L2) 4 Good Extension (S1) 4 Good Abduction 4+ Good+ Adduction 4+ Good+ External Rotation 4+ Good+ Internal Rotation 4+ Good+ Knee Strength Knee Manual Muscle Testing Right Flexion (S2) 4+ Good+ Extension (L3) 4+ Good+ Left Flexion (S2) 4+ Good+ Extension (L3) 4+ Good+ Ankle/Foot Strength Ankle and Foot Manual Muscle Testing Right Dorsiflexion (L4) 4 Good Left Dorsiflexion (L4) 4 Good PT-OP-Q Treatments Start: 12/08/22 17:27 Freq: Status: Active Protocol: Document 01/13/23 15:15 DCW (Rec: 01/13/23 15:58 DCW [id number]) Cardio Equipment Recumbent Elliptical (Biodex) Duration (Minutes) 5 Resistance 4 Seat Position 8 Gym Equipment Shuttle Recovery Unilateral Squats Resistance 25# (One new) Bilateral Squats Resistance 50# (Two new) Therapeutic Ball Pelvic Tilts Exercise Details Pelvic Tilts/Circles Ball Size/Color Green - 65 cm Therapeutic Exercises Supine Exercises Bridging Supine Exercise Name Bridging KtC Supine Exercise Name Single KtC, Double KtC Side bilateral LTR Supine Exercise Name LTR Sidelying Exercises Reverse Clamshell Sidelying Exercise Name Reverse Clamshell Side bilateral Clamshell Sidelying Exercise Name Clamshell Side bilateral Standing Exercises Hip Extension Standing Exercise Name Hip Extension Side bilateral Resistance Green loop Other Exercises Resisted Ambulation Other Exercise Name Resisted side-stepping Resistance Green loop PT-OP-T Assessment and Plan Start: 12/08/22 17:27 Freq: Status: Active Protocol: Document 01/13/23 15:15 DCW (Rec: 01/13/23 15:58 DCW [id number]) Physical Therapy Assessment Impairments Impairments Activity Tolerance,Functional Activities,Functional Mobility ,Gait,Pain,Posture,ROM, Strength Goals Three Impairment Significantly limited bilateral shoulder mobility, right worse than left Inter Com Servicer Goal (LTG) Pt to improve right shoulder flexion and abduction to at least 120 in order to 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 LTG Duration 02/07/23 Two Impairment Pt demonstrates increased falls risk, per TUG score (14. 41) Assisted Goal (LTG) Pt to improve TUG score to a three-trial average <11 seconds in order to demonstrate decreased falls risk and improved safety LTG Duration 02/07/23 One Impairment Pt does not have an appropriate home exercise program Short Term Goal (STG) Pt to be independent and compliant with an appropriate HEP STG Duration 01/08/23 Assessment Summary Assessment Addition of gentle mobility and core/hip strengthening to HEP, pt practiced new exercises today, felt good about them, noted muscle fatigue but no pain. Pt responding very well ~3 months s/p TLIF. Physical Therapy Plan Frequency and Duration Frequency of Treatment 1x/Week Plan of Care Start Date 12/08/22 Plan of Care End Date 02/07/23 Therapeutic Interventions Therapeutic Interventions Balance Training,Gait Training ,Home Exercise Program,Joint Mobilizations,Manual Therapy, Neuromuscular Re-education, Patient/Caregiver Education, Self-Care/Home Management,Soft Tissue Mobilization, Therapeutic Activities, Therapeutic Exercises Modalities Cold Pack/Ice Massage,Electric Stimulation,Hot Packs, Ultrasound Next Visit Focus/Plan Next Note Type Treatment Note Next Visit Plan Recheck HEP added last tx: shld ER, wall posture, resisted shld ext. Revisit R mod open book, shld ABD in future. Add FF supine. Add wt' d step ups, squat<>stand ( states self), shuttle recovery & Balance, sport cord. POC: Increasing activity tolerance, balance training, shoulder ROM
--- NOTE | 2023-01-20 15:59 | PT.OTN ---
Current Diagnoses Primary osteoarthritis, right shoulder (01/20/23) Arthrodesis status (01/20/23) Physical Therapy Treatment Note PT-OP-A Visit Information Start: 12/08/22 17:27 Freq: Status: Active Protocol: Document 01/20/23 15:15 DCW (Rec: 01/20/23 15:59 DCW [id number]) Out-Patient Physical Therapy Visit Information Visit Information Visit Type Treatment Note Visit Start Time 15:15 Visit Stop Time 16:00 Total Visit Minutes 45 Visit Number 4 Number of PRODUCTION PLANNER SCHEDULER Visits 0 Evaluation Information Evaluation Date 12/08/22 PT-OP-B Current Condition Start: 12/08/22 17:27 Freq: Status: Active Protocol: Document 12/08/22 12:45 DCW (Rec: 12/08/22 18:02 DCW [id number]) Current Condition History of Current Condition Onset Date 10/12/22 Current Complaints L4-5, L5-S1 TLIF /c posterior intrumentation History of Current Condition Pt is a 77 year old female presenting two months s/p L4-5 -S1 TLIF. Pt notes she has been feeling much better since surgery, not experiencing any radicular symptoms but is still somewhat limited in her activity. Admits she is limited with ambulation, as well as extended standing due to stiffness and pain in her low back. Feels she just needs some genreal strengthening and better endurance. Does note that she previously underwent back surgery for Leonidas Feroz placement secondary to Scoliosis in the 70s, but back surgery has come a long way since then. Additionally, referral notes right shoulder OA. Patient notes that her shoulder gives her a lot of trouble, is very limited in ROM, and she is planning on getting a TSA after she fully heals from her TLIF. Treatment Goals Patient/Caregiver Goals I want to get rid of my back pain. PT-OP-C Subjective Start: 12/08/22 17:27 Freq: Status: Active Protocol: Document 01/20/23 15:15 DCW (Rec: 01/20/23 15:59 DCW [id number]) OP-PT Subjective Patient Comments Patient Comments Pt reports she is feeling good , has been compliant with her HEP, typically performs twice a day. Still noting some continued anterior thigh pain, which is really my only complaint. PT-OP-E Functional Tests Start: 12/08/22 17:27 Freq: Status: Active Protocol: Document 12/08/22 12:45 DCW (Rec: 12/08/22 18:02 DCW [id number]) Functional Tests 6 Minute Walk Test Distance 920' Device Used none Comments 2.56 ft/sec 30 Second Sit to Stand Test Score x 12 repetitions Timed Up and Go (TUG) Score 14.41 Comments Three trial average (14.35, 13 .50, 15.38) PT-OP-G Mobility & Gait Start: 12/08/22 17:27 Freq: Status: Active Protocol: Document 12/08/22 12:45 DCW (Rec: 12/08/22 18:02 DCW [id number]) OP Gait Assessment Gait Gait Assistance Required: Independent Distance (Feet) 920 Assistive Devices Assistive Device None Gait Deviations General Gait Pattern Decreased Stride Length, Decreased Feet Clearance, Flexed Trunk Factors Limiting Gait Function Factors Limiting Gait Function Decreased Activity Tolerance, Pain PT-OP-K Range of Motion Start: 12/08/22 17:27 Freq: Status: Active Protocol: Document 12/08/22 12:45 DCW (Rec: 12/08/22 18:02 DCW [id number]) Shoulder Goniometric Range of Motion Shoulder Right Active Testing Position Sitting Flexion 70 Abduction 62 External Rotation at 0 degrees Abduction 24 Internal Rotation Behind Back (text) Right SI Left Active Testing Position Sitting Flexion 132 Abduction 123 External Rotation at 0 degrees Abduction 65 Internal Rotation Behind Back (text) T8 PT-OP-M Strength Start: 12/08/22 17:27 Freq: Status: Active Protocol: Document 12/08/22 12:45 DCW (Rec: 12/08/22 18:02 DCW [id number]) Hip Strength Hip Manual Muscle Testing Right Flexion (L2) 4+ Good+ Extension (S1) 4 Good Abduction 4+ Good+ Adduction 4+ Good+ External Rotation 4+ Good+ Internal Rotation 4+ Good+ Left Flexion (L2) 4 Good Extension (S1) 4 Good Abduction 4+ Good+ Adduction 4+ Good+ External Rotation 4+ Good+ Internal Rotation 4+ Good+ Knee Strength Knee Manual Muscle Testing Right Flexion (S2) 4+ Good+ Extension (L3) 4+ Good+ Left Flexion (S2) 4+ Good+ Extension (L3) 4+ Good+ Ankle/Foot Strength Ankle and Foot Manual Muscle Testing Right Dorsiflexion (L4) 4 Good Left Dorsiflexion (L4) 4 Good PT-OP-Q Treatments Start: 12/08/22 17:27 Freq: Status: Active Protocol: Document 01/20/23 15:15 DCW (Rec: 01/20/23 15:59 DCW [id number]) Cardio Equipment Recumbent Elliptical (Biodex) Duration (Minutes) 5 Resistance 4 Seat Position 8 Gym Equipment Shuttle Recovery Unilateral Squats Resistance 37# Bilateral Squats Resistance 50# Therapeutic Ball Bridging Exercise Details Bridging /c feet on ball Ball Size/Color Blue - 45 cm Body Position Supine LTR Exercise Details LTR Ball Size/Color Blue - 45 cm Body Position Supine Pelvic Tilts Exercise Details Pelvic Tilts/Circles Ball Size/Color Green - 65 cm Body Position Sitting Therapeutic Exercises Supine Exercises Piriformis Supine Exercise Name Figure-4 stretch Side bilateral Hip Flexors Supine Exercise Name Hip Flexor Stretch Side right KtC Supine Exercise Name Single KtC, Double KtC Side bilateral Standing Exercises Hip Extension Standing Exercise Name Hip Extension Side bilateral Resistance Green loop Other Exercises Resisted Ambulation Other Exercise Name Resisted side-stepping Resistance Green loop PT-OP-T Assessment and Plan Start: 12/08/22 17:27 Freq: Status: Active Protocol: Document 01/20/23 15:15 DCW (Rec: 01/20/23 15:59 DCW [id number]) Physical Therapy Assessment Impairments Impairments Activity Tolerance,Functional Activities,Functional Mobility ,Gait,Pain,Posture,ROM, Strength Goals Three Impairment Significantly limited bilateral shoulder mobility, right worse than left [facility] Goal (LTG) Pt to improve right shoulder flexion and abduction to at least 120 in order to 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 LTG Duration 02/07/23 Two Impairment Pt demonstrates increased falls risk, per TUG score (14. 41) [facility]cf Goal (LTG) Pt to improve TUG score to a three-trial average <11 seconds in order to demonstrate decreased falls risk and improved safety LTG Duration 02/07/23 One Impairment Pt does not have an appropriate home exercise program Short Term Goal (STG) Pt to be independent and compliant with an appropriate HEP STG Duration 01/08/23 Assessment Summary Assessment Pt continues to respond very well to treatment, have been compliant with ongoing HEP. Very happy for addition of hip flexor stretch. Physical Therapy Plan Frequency and Duration Frequency of Treatment 1x/Week Plan of Care Start Date 12/08/22 Plan of Care End Date 02/07/23 Therapeutic Interventions Therapeutic Interventions Balance Training,Gait Training ,Home Exercise Program,Joint Mobilizations,Manual Therapy, Neuromuscular Re-education, Patient/Caregiver Education, Self-Care/Home Management,Soft Tissue Mobilization, Therapeutic Activities, Therapeutic Exercises Modalities Cold Pack/Ice Massage,Electric Stimulation,Hot Packs, Ultrasound Next Visit Focus/Plan Next Note Type Treatment Note Next Visit Plan Recheck HEP added last tx: shld ER, wall posture, resisted shld ext. Revisit R mod open book, shld ABD in future. Add FF supine. Add wt' d step ups, squat<>stand ( states self), shuttle recovery & Balance, sport cord. POC: Increasing activity tolerance, balance training, shoulder ROM
--- NOTE | 2023-02-20 17:23 | PT.OTN ---
Current Diagnoses Primary osteoarthritis, right shoulder (02/20/23) Arthrodesis status (02/20/23) Physical Therapy Treatment Note PT-OP-A Visit Information Start: 12/08/22 17:27 Freq: Status: Active Protocol: Document 02/20/23 16:45 DCW (Rec: 02/20/23 17:23 DCW [id number]) Out-Patient Physical Therapy Visit Information Visit Information Visit Type Discharge Summary Visit Start Time 16:45 Visit Stop Time 17:15 Total Visit Minutes 30 Visit Number 5 Number of FOREST ECONOMICS PROFESSOR Visits 0 Evaluation Information Evaluation Date 12/08/22 PT-OP-B Current Condition Start: 12/08/22 17:27 Freq: Status: Active Protocol: Document 12/08/22 12:45 DCW (Rec: 12/08/22 18:02 DCW [id number]) Current Condition History of Current Condition Onset Date 10/12/22 Current Complaints L4-5, L5-S1 TLIF /c posterior intrumentation History of Current Condition Pt is a 77 year old female presenting two months s/p L4-5 -S1 TLIF. Pt notes she has been feeling much better since surgery, not experiencing any radicular symptoms but is still somewhat limited in her activity. Admits she is limited with ambulation, as well as extended standing due to stiffness and pain in her low back. Feels she just needs some genreal strengthening and better endurance. Does note that she previously underwent back surgery for Leonidas Feroz placement secondary to Scoliosis in the 70s, but back surgery has come a long way since then. Additionally, referral notes right shoulder OA. Patient notes that her shoulder gives her a lot of trouble, is very limited in ROM, and she is planning on getting a TSA after she fully heals from her TLIF. Treatment Goals Patient/Caregiver Goals I want to get rid of my back pain. PT-OP-C Subjective Start: 12/08/22 17:27 Freq: Status: Active Protocol: Document 02/20/23 16:45 DCW (Rec: 02/20/23 17:23 DCW [id number]) OP-PT Subjective Patient Comments Patient Comments Pt feeling very good about current level of function. PT-OP-E Functional Tests Start: 12/08/22 17:27 Freq: Status: Active Protocol: Document 02/20/23 16:45 DCW (Rec: 02/20/23 17:18 DCW [id number]) Functional Tests 6 Minute Walk Test Distance 1049' Device Used none Comments 2.91 ft/sec 30 Second Sit to Stand Test Score x 13 repetitions Timed Up and Go (TUG) Score 9.65 Comments Three trial average (10.53, 9. 71, 8.72) PT-OP-G Mobility & Gait Start: 12/08/22 17:27 Freq: Status: Active Protocol: Document 02/20/23 16:45 DCW (Rec: 02/20/23 17:18 DCW [id number]) OP Gait Assessment Gait Gait Assistance Required: Independent Distance (Feet) 1,049 Assistive Devices Assistive Device None PT-OP-K Range of Motion Start: 12/08/22 17:27 Freq: Status: Active Protocol: Document 02/20/23 16:45 DCW (Rec: 02/20/23 17:18 DCW [id number]) Shoulder Goniometric Range of Motion Shoulder Right Active Testing Position Sitting Flexion 90 Abduction 89 External Rotation at 0 degrees Abduction 30 Internal Rotation Behind Back (text) L3 Left Active Testing Position Sitting Flexion 145 Abduction 166 External Rotation at 0 degrees Abduction 65 Internal Rotation Behind Back (text) T6 PT-OP-M Strength Start: 12/08/22 17:27 Freq: Status: Active Protocol: Document 12/08/22 12:45 DCW (Rec: 12/08/22 18:02 DCW [id number]) Hip Strength Hip Manual Muscle Testing Right Flexion (L2) 4+ Good+ Extension (S1) 4 Good Abduction 4+ Good+ Adduction 4+ Good+ External Rotation 4+ Good+ Internal Rotation 4+ Good+ Left Flexion (L2) 4 Good Extension (S1) 4 Good Abduction 4+ Good+ Adduction 4+ Good+ External Rotation 4+ Good+ Internal Rotation 4+ Good+ Knee Strength Knee Manual Muscle Testing Right Flexion (S2) 4+ Good+ Extension (L3) 4+ Good+ Left Flexion (S2) 4+ Good+ Extension (L3) 4+ Good+ Ankle/Foot Strength Ankle and Foot Manual Muscle Testing Right Dorsiflexion (L4) 4 Good Left Dorsiflexion (L4) 4 Good PT-OP-Q Treatments Start: 12/08/22 17:27 Freq: Status: Active Protocol: Document 01/20/23 15:15 DCW (Rec: 01/20/23 15:59 DCW [id number]) Cardio Equipment Recumbent Elliptical (Biodex) Duration (Minutes) 5 Resistance 4 Seat Position 8 Gym Equipment Shuttle Recovery Unilateral Squats Resistance 37# Bilateral Squats Resistance 50# Therapeutic Ball Bridging Exercise Details Bridging /c feet on ball Ball Size/Color Blue - 45 cm Body Position Supine LTR Exercise Details LTR Ball Size/Color Blue - 45 cm Body Position Supine Pelvic Tilts Exercise Details Pelvic Tilts/Circles Ball Size/Color Green - 65 cm Body Position Sitting Therapeutic Exercises Supine Exercises Piriformis Supine Exercise Name Figure-4 stretch Side bilateral Hip Flexors Supine Exercise Name Hip Flexor Stretch Side right KtC Supine Exercise Name Single KtC, Double KtC Side bilateral Standing Exercises Hip Extension Standing Exercise Name Hip Extension Side bilateral Resistance Green loop Other Exercises Resisted Ambulation Other Exercise Name Resisted side-stepping Resistance Green loop PT-OP-T Assessment and Plan Start: 12/08/22 17:27 Freq: Status: Active Protocol: Document 02/20/23 16:45 DCW (Rec: 02/20/23 17:23 DCW [id number]) Physical Therapy Assessment Impairments Impairments Activity Tolerance,Functional Activities,Functional Mobility ,Gait,Pain,Posture,ROM, Strength Goals Three Impairment Significantly limited bilateral shoulder mobility, right worse than left Representative Personal Service Goal (LTG) Pt to improve right shoulder flexion and abduction to at least 120 in order to 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 LTG Duration Improving Two Impairment Pt demonstrates increased falls risk, per TUG score (14. 41) Representative Personal Service Goal (LTG) Pt to improve TUG score to a three-trial average <11 seconds in order to demonstrate decreased falls risk and improved safety LTG Duration Met One Impairment Pt does not have an appropriate home exercise program Short Term Goal (STG) Pt to be independent and compliant with an appropriate HEP STG Duration Met Assessment Summary Assessment Pt has met or nearly met all goals, still somewhat limited with right shoulder ROM. Recovering very well from TLIF , feels comfortable at this time regarding discharge to independent HEP. Pt understands she would need a new referral in order to return in the future. Physical Therapy Plan Frequency and Duration Frequency of Treatment 1x/Week Plan of Care Start Date 02/20/23 Plan of Care End Date 02/21/23 Therapeutic Interventions Therapeutic Interventions Balance Training,Gait Training ,Home Exercise Program,Joint Mobilizations,Manual Therapy, Neuromuscular Re-education, Patient/Caregiver Education, Self-Care/Home Management,Soft Tissue Mobilization, Therapeutic Activities, Therapeutic Exercises Modalities Cold Pack/Ice Massage,Electric Stimulation,Hot Packs, Ultrasound Discharge Physical Therapy Discharge Comments Discharge to independent [facility] Next Visit Focus/Plan Next Note Type Discharge Summary
--- NOTE | 2023-02-20 17:24 | PT.OPPOC ---
Physical, Occupational & Speech Therapy At [facility] Current Diagnoses Primary osteoarthritis, right shoulder (02/20/23) Arthrodesis status (02/20/23) Visit Care Team Role Provider Type LYNDA Harley Family Provider Advanced Associate Store Leader Primary Care Provider Specialty: Family Practice Address: [address] [place] [address], [id number] Email: [email or web address] Fito Edwards MD Attending Provider Physician Referring Provider Specialty: Orthopedics Orthopedic Surgery Address: [address] [place] [address], [id number] Email: [email or web address] Plan Of Care PT-OP-T Assessment and Plan Start: 12/08/22 17:27 Freq: Status: Active Protocol: Document 02/20/23 16:45 DCW (Rec: 02/20/23 17:23 DCW [id number]) Physical Therapy Assessment Impairments Impairments Activity Tolerance,Functional Activities,Functional Mobility ,Gait,Pain,Posture,ROM, Strength Goals Three Impairment Significantly limited bilateral shoulder mobility, right worse than left Penitentiary Goal (LTG) Pt to improve right shoulder flexion and abduction to at least 120 in order 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 LTG Duration Improving Two Impairment Pt demonstrates increased falls risk, per TUG score (14. 41) Slat Grader Goal (LTG) Pt to improve TUG score to a three-trial average <11 seconds in order to demonstrate decreased falls risk and improved safety LTG Duration Met One Impairment Pt does not have an appropriate home exercise program Short Term Goal (STG) Pt to be independent and compliant with an appropriate HEP STG Duration Met Assessment Summary Assessment Pt has met or nearly met all goals, still somewhat limited with right shoulder ROM. Recovering very well from TLIF , feels comfortable at this time regarding discharge to independent HEP. Pt understands she would need a new referral in order to return in the future. Physical Therapy Plan Frequency and Duration Frequency of Treatment 1x/Week Plan of Care Start Date 02/20/23 Plan of Care End Date 02/21/23 Therapeutic Interventions Therapeutic Interventions Balance Training,Gait Training ,Home Exercise Program,Joint Mobilizations,Manual Therapy, Neuromuscular Re-education, Patient/Caregiver Education, Self-Care/Home Management,Soft Tissue Mobilization, Therapeutic Activities, Therapeutic Exercises Modalities Cold Pack/Ice Massage,Electric Stimulation,Hot Packs, Ultrasound Discharge Physical Therapy Discharge Comments Discharge to independent [facility] Next Visit Focus/Plan Next Note Type Discharge Summary Plan of Care Dates Plan of Care Start Date 02/20/23 Plan of Care End Date 02/21/23 Electronically Signed by: To Chinchilla, PT 02/20/23 9220 If you are in agreement with this Plan of Care, please return a signed and dated copy. I have reviewed this Plan of Care and certify that the skilled therapy services above are required to meet the patient?s needs. Physician Signature Date Printed Name and Credentials Clinical Instructor Signature Printed Name and Credentials
== END 2023-02-22 08:41 | disposition home or self-care (01) ==
LOC: PHYS 16:45
PROVIDERS: Family Provider Nurse Practitioner; PCP Nurse Practitioner; Referring Provider Orthopaedic Surgery Orthopaedic Surgery of the Spine; Visit Provider Orthopaedic Surgery Orthopaedic Surgery of the Spine
DX: Z98.1 Arthrodesis status (principal); M19.011 Primary osteoarthritis, right shoulder
CPT/HCPCS: 97110; 97140; 97161; 97530; 97535

== ENCOUNTER → 2023-04-10 13:43 | Outpatient (CLI) | payer OTHER, SELFPAY ==
[2022-10-12 12:23] VITALS: BMI 29.4
== END ==
PROVIDERS: Family Provider Nurse Practitioner; PCP Nurse Practitioner; Referring Provider Nurse Practitioner; Visit Provider Nurse Practitioner
DX: I63.9 Cerebral infarction, unspecified (principal)
CPT/HCPCS: 80053; 80061; 84439; 84443; 84481; 85027; 93246

== ENCOUNTER → 2023-04-11 14:43 | Outpatient (CLI) | payer OTHER, SELFPAY ==
[2022-10-12 12:23] VITALS: BMI 29.4
[2023-04-11 16:25] LABS: Creatinine Urine Random 147.9 mg/dL
[2023-04-11 16:46] LABS: Microalbumi Creatinin Ratio Ur 201.4 ug/mg CR (<30); Microalbumin Urine Random 29.8 mg/dL (0-1.6)
== END ==
PROVIDERS: Family Provider Nurse Practitioner; PCP Nurse Practitioner; Referring Provider Nurse Practitioner; Visit Provider Nurse Practitioner
DX: I63.9 Cerebral infarction, unspecified (principal); Z79.899 Other long term (current) drug therapy; F31.9 Bipolar disorder, unspecified; F31.81 Bipolar II disorder; I10 Essential (primary) hypertension; E78.2 Mixed hyperlipidemia; D64.9 Anemia, unspecified
CPT/HCPCS: 82043; 82570

== ENCOUNTER → 2023-05-12 11:43 | Outpatient (CLI) | payer MEDICARE, SELFPAY ==
[2022-10-12 12:23] VITALS: BMI 29.4
--- NOTE | 2023-05-12 12:15 | DI.RAD.S_ITS ---
Bone Density Report Name: MICHEL SHANKS Age: 78 Sex: Female Ethnicity: White Date of : 1945 Indication: postmenopausal; screening for osteoporosis; Referring Provider: CRUZITO DOUGLAS Study: Bone densitometry was performed. Exam Date: May 12, 2023 Accession number: [id number] Bone Density: Region BMD T-score Z-score Classification Femoral Neck (Left) 0.914 0.6 2.8 Normal Total Hip (Left) 0.937 0.0 1.9 Normal Femoral Neck (Right) 0.938 0.8 3.0 Normal Total Hip (Right) 0.933 -0.1 1.8 Normal Total Hip Mean 0.935 -0.1 1.9 Normal Total Forearm (Left) 0.605 0.5 3.2 Normal 1/3 Forearm (Left) 0.763 1.2 3.9 Normal UD Forearm (Left) 0.430 -0.2 1.8 Normal World Health Organization criteria for BMD impression classify patients as: Normal (T-score at or above -1.0), Osteopenia (T-score between -1.0 and -2.5), or Osteoporosis (T-score at or below -2.5). 10-year Fracture Risk: FRAX not reported because: All T-scores for Spine Total, Hip Total, Femoral Neck at or above -1.0 Previous Exams: -- Region Exam Age BMD T-score BMD Change BMD Change Date g/cm2 vs Baseline vs Previous -- Total Hip(Left) 05/12/2023 78 0.937 0.0 -0.038 (-3.9%)# 0.015 (1.7%)# 05/25/2021 76 0.922 -0.2 -0.053 (-5.5%)# -0.053 (-5.5%)# 04/17/2019 74 0.975 0.3 Total Hip(Right) 05/12/2023 78 0.933 -0.1 -0.054 (-5.5%)# -0.008 (-0.8%)# 05/25/2021 76 0.940 0.0 -0.047 (-4.7%)# -0.047 (-4.7%)# 04/17/2019 74 0.987 0.4 1/3 Forearm(Left) 05/12/2023 78 0.763 1.2 -0.021 (-2.7%) -0.021 (-2.7%) 05/25/2021 76 0.785 1.5 -- *Denotes significance at 95% confidence level, LSC for Total Hip = 0.027 g/cm2, LSC for 1/3 Forearm = 0.023 g/cm2 # Denotes dissimilar scan types or analysis methods Impression: The patient has normal bone mass. No significant bone loss was observed. Discussion: BONE DENSITY IS ABOVE THE MINIMUM DESIRABLE LEVEL AT ALL SKELETAL SITES TESTED. This patient's bone mineral density is above the minimum desirable level (T-score -1.0 or better) at all sites measured. The patient should follow a healthful lifestyle (good nutrition with adequate calcium and vitamin D, and appropriate weight-bearing exercise). Follow-Up: Consider repeating this study in 5 years or sooner if there is some new clinical indication. Reported by: DAYANNA HAWK M.D. on 05/12/2023 1:19:00 PM.
== END ==
PROVIDERS: Family Provider Nurse Practitioner; PCP Nurse Practitioner; Referring Provider Nurse Practitioner; Visit Provider Nurse Practitioner
DX: M81.0 Age-related osteoporosis without current pathological fracture (principal)
CPT/HCPCS: 77080; 77081

== ENCOUNTER → 2023-05-31 12:41 | Outpatient (CLI) | payer MEDICARE, SELFPAY ==
[2022-10-12 12:23] VITALS: BMI 29.4
--- NOTE | 2023-05-31 12:42 | DI.MG.S_ITS ---
BILATERAL DIGITAL SCREENING MAMMOGRAM 3D/2D WITH CAD: 05/31/2023 CLINICAL: Routine screening. Comparison is made to exams dated: 06/08/2022 mammogram, 04/13/2021 mammogram, 03/20/2020 mammogram, and 03/19/2019 mammogram - [facility]. Both breasts are heterogeneously dense, which may obscure small masses (category c / 51-75% glandular tissue). Current study was also evaluated with a Computer Aided Detection (CAD) system. No significant masses, calcifications, or other findings are seen in either breast. There has been no significant interval change. IMPRESSION: NEGATIVE There is no mammographic evidence of malignancy. A 1 year screening mammogram is recommended. Based on the Tyrer Cuzick model (a risk assessment model) the patient's lifetime risk is 3.3% and her 10 year risk is 0.0%. According to the ACR, ACS, and NCCN guidelines, an annual breast MRI exam along with mammogram is recommended if the patient's lifetime risk is 20% or greater. This exam was interpreted at Station ID: [id number]. NOTE: For mammograms, a report in lay terms will be sent to the patient. Approximately 15% of breast malignancies will not be visualized mammographically. In the management of a palpable breast mass, a negative mammogram must not discourage biopsy of a clinically suspicious lesion. Electronically Signed By: Osmin whitehead/ellie:05/31/2023 16:55:33 copy to: CRUZITO DOUGLAS letter sent: Normal Exam ACR BI-RADS Category 1: Negative 3341F
== END ==
LOC: MAMMO 12:42
PROVIDERS: Family Provider Nurse Practitioner; PCP Nurse Practitioner; Referring Provider Nurse Practitioner; Visit Provider Nurse Practitioner
DX: Z12.31 Encounter for screening mammogram for malignant neoplasm of breast (principal); R92.333 Mammographic heterogeneous density, bilateral breasts
CPT/HCPCS: 77063; 77067

== ENCOUNTER 2023-07-22 10:38 | Emergency (ER) | payer MEDICARE, SELFPAY ==
[2022-10-12 12:23] VITALS: BMI 29.4
[2023-07-22] MEDS: DEXAMETHASONE 10 MG/ML VIAL PO (13:09)
[2023-07-22] MEDS: IBUPROFEN 400 MG TABLET PO (13:09)
[2023-07-22] MEDS: ACETAMINOPHEN 325 MG TABLET 650 MG PO (13:09)
--- NOTE | 2023-07-22 17:43 | PC.NURSE ---
[facility] downtime 07/21/23 ~1999- see paper charting
[2023-07-22 19:17] LABS: Strep Grp A by PCR Rapid Negative (Negative)
== END 2023-07-22 13:20 | disposition home or self-care (01) ==
PROVIDERS: Emergency Provider Emergency Medicine; Family Provider Nurse Practitioner; PCP Nurse Practitioner
DX: J02.9 Acute pharyngitis, unspecified (principal); Z87.891 Personal history of nicotine dependence
CPT/HCPCS: 87070; 87077; 87147; 87186; 87651; 99283; J1100

== ENCOUNTER 2023-08-01 13:32 | Emergency (ER) | payer MEDICARE, SELFPAY ==
[2022-10-12 12:23] VITALS: BMI 29.4
--- NOTE | 2023-08-01 13:33 | EKG_ITS ---
[address] [address] Test Date: 2023-08-01 Pat Name: Stephanie Lentz Department: Room: Gender: Female Scrap Yard Worker: JOHN : 1945 Requested By: Order Number: [id number] Reading MD: Kiko Henson Measurements Intervals [place] Rate: 80 P: 56 NH: 196 QRS: 63 QRSD: 80 T: 58 QT: 358 QTc: 412 Interpretive Statements Normal sinus rhythm Electronically Signed On 08-02-2023 18:38:11 PDT by Kiko Henson
[2023-08-01 13:40] VITALS: BP 175/83; PULSE 92; RESP 18; TEMP 36.3; O2SAT 96; BMI 23.9
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
[2023-08-01 14:02] LABS: Add Manual Diff / Slide Review NO; Basophils Absolute Auto 100 /uL (0-100); Basophils Percent Auto 0.7 % (0-2); Eosinophils Absolute Auto 0 /uL (0-450); Eosinophils Percent Auto 0.2 % (2-4); Hematocrit 29.8 % (36-46); Hemoglobin 9.9 g/dL (12.0-16.0); Lymphocytes Absolute Auto 600 /uL (1100-4500); Lymphocytes Percent Auto 8.1 % (25-40); Mean Corpuscular HGB Conc 33.1 % (30-36); Mean Corpuscular Hemoglobin 29.1 PG (26-34); Mean Corpuscular Volume 87.7 fL (80-100); Monocytes Absolute Auto 600 /uL (0-900); Monocytes Percent Auto 7.7 % (3-14); Neutrophils Absolute Auto 6300 /uL (1500-7000); Neutrophils Percent Auto 83.3 % (50-75); Platelet Count 500 X10^3/uL (150-400); Red Blood Cell Count 3.39 X10^6/uL (4.0-5.2); Red Cell Distribution Width 16.4 % (11.6-14.8); White Blood Cell Count 7.6 X10^3/uL (4.5-11.0)
[2023-08-01 14:12] LABS: Acetaminophen < 10 ug/mL (10-30); Alanine Aminotransferase 19 IU/L (<35); Albumin 4.2 g/dL (3.5-5.0); Albumin Globulin Ratio 1.3 (1.0-2.8); Alkaline Phosphatase 124 U/L (38-126); Aspartate Aminotransferase 28 IU/L (14-36); BUN Creatinine Ratio 24.3 (6-22); Bilirubin Total 0.4 mg/dL (0.2-1.3); Blood Urea Nitrogen 25 mg/dL (7-17); Calcium 8.8 mg/dL (8.4-10.2); Carbon Dioxide 24 mmol/L (22-32); Chloride 107 mmol/L (98-107); Estimated Glomerular Filt Rate 56 mL/min (>60); Ethanol (ETOH) < 10 mg/dL; Globulin 3.2 g/dL (1.7-4.1); Glucose 139 mg/dL (80-110); HEMOLYSIS < 15 (0-50); Potassium 3.7 mmol/L (3.4-5.1); Salicylate < 1.0 mg/dL (<20); Sodium 140 mmol/L (137-145); Total Protein 7.4 g/dL (6.3-8.2)
[2023-08-01 14:16] LABS: COVID19 -Nasal RAPID Negative (Negative)
[2023-08-01 14:31] LABS: Ammonia (NH3) < 9 umol/L (9-30)
[2023-08-01 14:43] LABS: Thyroid Stimulating Hormone 1.37 uIU/mL (0.47-4.68)
[2023-08-01 14:51] LABS: Appearance Urine UA CLEAR; Bilirubin Urine UA NEGATIVE (NEGATIVE); Color Urine UA YELLOW; Glucose Urine UA NEGATIVE (Negative); Ketones Urine UA 1+ (NEGATIVE); Leukocyte Esterase Urine UA NEGATIVE (NEGATIVE); Nitrite Urine UA NEGATIVE (Negative); Occult Blood Urine UA 1+ (Negative); Protein Urine UA 2+ (Negative); Specific Gravity Urine UA >=1.030 (1.000-1.035); Urobilinogen Urine UA 0.2 E.U./dL (0.2)
[2023-08-01 15:24] LABS: Bacteria Urine Occasional (0-1); Hyaline Casts Urine 0-1/LPF; RBC Urine 5-10/HPF (0-5/HPF); Squamous Epithelial Cell Urine 1-5 /HPF (0-5/HPF); Urine Volume Low Vol <10mL (spun); WBC Urine 1-5/HPF (0-5/HPF)
[2023-08-01 15:25] LABS: Culture Indicated Urine Cult Not Indicated
[2023-08-01] MEDS: ACETAMINOPHEN 325 MG TABLET 975 MG PO (15:28)
--- NOTE | 2023-08-01 16:42 | PC.NURSE ---
Pts longterm memory intact, but has difficulty with short term memory.
--- NOTE | 2023-08-01 16:43 | CM.SWNOTE ---
ED SHEEP HERDER Assessment SHEEP HERDER - Registered Land Surveyor Assessment SHEEP HERDER - Registered Land Surveyor Assessment Time Spent with Patient Start date 08/01/23 Visit Start Time 14:50 End date 08/01/23 Visit End Time 15:10 Total time Care Management spent on 40 minutes patient visit-in minutes Mental Health Screening Include Onset, Duration, Intensity Presenting Problem Patient presents to ED via BLS due to family's concern for patient not taking medication, tere and not safely caring for self. Patient has hx of Bipolar. Patient endorses she knows she is manic and that her sister is concerned about her manic behavior, patient states I love being manic. Patient denies medication concerns and states she takes medication as prescribed. Precipitating Event(s) It is reported that patient's residence of 5 years at [facility] was being repaired and patient had to temporarily stay at a hotel, family reports that in this time period patient has possibly been triggered with a manic episode due to these changes. Family endorses concerns that patient is drinking again, as a bottle of alcohol was found in her car. Family endorses concern that patient has not been sleeping, presenting with increase confusion and stealing and hiding things. Family reports that patient stopped taking her medication at least a week ago. It is reported that patient has lost her medication and possibly dumped them out or thrown it away. It is reported that people close to patient have observed that she has not been herself in the last week. It is reported that patient was driving less than 5 miles per hour and was not able to safely drive her car today. Patient's family have concerns for patient sitting in her car in the parking lot of her apartment and not moving. Its reported that patient has been having repeated conversations with people as well. It is reported that patient has hx of manic episode 20 years ago resulting in [facility] placement in [facility] Patient Strengths Patient has support from sister and daughter. Current Behavioral Health Provider(s) Patient sees Psychiatrist Dr. Janette Castillo, Provider, Ph. # Surjit Duncan at [facility] (Ph. # [phone]). Patient had recent appt 07/26/23. Patient has been on the same medication regimen since 2008. SHEEP HERDER calls Dr. Duncan's office with patient consent and leaves message with staff, awaiting return call. lamotrigine to 300 mg p.o. daily nortriptyline 75 mg p.o. q.h.s . quetiapine to 200 mg p.o. q.h. s. Psych. 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 Patient endorses her last drink of ETOH was a year or two ago. Patient endorses occasional marijuana use and states that she used to use marijuana daily. Family Hx of Behavioral Abuse Patient reports she found her mother after she , patient states she was 18 y/o at the time. Patient states that her father was an alcoholic. Patient states that her son . Psychiatric Hospitalizations (date(s)/ It is reported that patient location) was hospitalized involuntarily in [place] about 20 years ago due to a manic episode where patient was paranoid and acting on delusions she was having. It is reported that patient had been stable on medication since this hospitalization. Patient is not able to recall about when and where she was hospitalized. Psychosocial information & Support Patient is 78 y/o female who Systems resides in [place] independently. EMS reported that patient resides with sister but patient had been staying with her sister while patient's apartment was being remodeled. Patient's sister lives in [place] and patient has a daughter that resides in [place]. School/Work retired Legal Concerns Legal Matters - Outstanding Issues None reported Mental Status Orientation (Person/Place/Time) A/Ox3, patient initally stated she is in the ED because of Afib but then later recognizes she is here due to her sister 's concern for her tere. Patient was able to identify the day, month, year and president. Stated Mood I love being manic Affect (Congruent with Mood?) euthymic, pleasant, full range , somewhat congruent with mood . Thought Content - Specify/Describe Patient states she has Obsessions, Delusions, Hallucinations visualizations of her dog who she had to put down. Patient denies auditory hallucinations . Patient thinks about her family who has a lot. Thought Processes (Plkpcnh-Lkmvsdmc-Ytjl circumstantial, repetitive, Ymfjghhh-Grqwjvjs-Cnjmttmxpv- disorganized at times. Patient Erzmrcenidxuux-Bdekjmz-Zmvcejcmiswh- repeats quotes of things her Thought Blocking) mother used to say. Patient's family states that patient repeats herself multiple times in a conversation. Patient will talk about things that happened a long time ago as if it is in current day. Speech (Ypjuup-Rjkj-Kmmkrga-Rapid-Soft- soft, pressured at times. Loud-Pressured) Motor (Giaboq-Ygjgmnmsl-Labp-Other) normal Insight (Mlue-Scsx-Etpd/Limited) limited Judgement (Yazh-Alxv-Isvk/Limited) limited Impulse Control (Adequate-Impaired) adequate Memory (Cdnoaqefa-Ubusxv-Ekrplk, impaired, patient repeating Impaired-Intact) things in conversation, not recalling recent events. Not formally assessed. Concentration (Intact-Impaired) intact Attention (Intact-Impaired) intact Behavior (Appropriate-Inappropriate) appropriate Additional Comment Patient presents as calm, cooperative and communicative Risk Assessment Suicidal Ideation (Plan) No Homicidal Ideation (Plan) No Intervention Intervention SHEEP HERDER enters room to meet with patient. Patient states she ran out her medication, but then also states she has been taking medication daily as prescribed . Patient's family states that they believe patient has not taken her medication for at least a week. Patient endorses she is manic and states that she loves being manic. Patient's family endorses concern about her ability to manage daily needs at this time, concern for her increased confusion, lack of sleep, driving at at less than 5 mph and possibly a danger to self or others. Patient denies any concern for ADLs, patient denies concern with her driving. Patient states she has plans to move back into her place shortly. SHEEP HERDER speaks with patient's daughter Veronica, patient's sister Ghada and Ghada's caregiver Kelley. All parties report concern for patient's increased manic behaviors, and not taking rx. Patient's daughter reports that she visited last weekend and patient was speaking with strangers, writing checks, forgetful with money and not thinking rationally. It is reported that Summer was driving behind patient when patient was driving less than 5 mph and believes that patient was possibly a danger to self and others due to her driving. SHEEP HERDER reviews patient with ED provider. It is the opinion of this SHEEP HERDER that patient would benefit from DCR evaluation to determine eligibility for [facility] geripsych placement due to concern for safety, medication management and crisis stabilization. SHEEP HERDER receives call from patient 's psychiatrist Dr. Duncan who states he saw patient 6 days ago and this is a definite change in patient's behavior, Dr. Duncan recommends DCR evaluation as well due to patient's presentation and concerns for patient safety. ED provider Dr. Riggs indicates agreement and understanding as well. Plan RA Plan SHEEP HERDER to dispatch DCR upon medical clearance to seek [facility] evaluation for patient. CASEY VelezSW
[2023-08-01 16:53] VITALS: BP 186/87; PULSE 87; RESP 15; O2SAT 95
[2023-08-01] MEDS: NICOTINE 14 PATCH 14 MG TOP (16:57)
--- NOTE | 2023-08-01 18:00 | DI.CT.S_ITS ---
PROCEDURE: CT HEAD/BRAIN WO CON INDICATIONS: AMS/WORSENING KYLER TECHNIQUE: Noncontrast 4.5 mm thick angled axial sections acquired from the foramen magnum to the vertex, with coronal and sagittal reformats. For radiation dose reduction, the following was used: automated exposure control, adjustment of mA and/or kV according to patient size. COMPARISON: [facility], CT, CT HEAD/BRAIN WO CON, 05/26/2020, 17:40. FINDINGS: Image quality: Diagnostic. CSF spaces: Basal cisterns are patent. No extra-axial fluid collections. The ventricles are symmetric in size and shape. Brain: Again noted is a left pedqvx-lb-Psuzhv region aneurysm clip No intracranial bleeds or masses. There is cerebral volume loss for age, with resultant ventricular and sulcal prominence. There are periventricular and deep white matter chronic small vessel ischemic changes. There is intracranial internal carotid artery atherosclerosis. Skull and face: Calvarium and visualized facial bones appear intact, without suspicious lesions. Sinuses: Visualized sinuses and mastoids are clear. IMPRESSION: No acute intracranial pathology. Dictated by: Dima Pino M.D. on 08/01/2023 at 16:27 Approved by: Dima Pino M.D. on 08/01/2023 at 16:34
--- NOTE | 2023-08-01 18:15 | CM.SWNOTE ---
ED DIRECTOR [employer] Note Due to family's significant concerns for patient's erratic, irrational manic behavior, and not taking medication for several days, and concern for patient's safety this [employer]OR [employer] dispatches DCR. [employer] calls [facility] and dispatches DCR at 1800, [employer] faxes clinical packet and [facility] attestation form. Plan: DCR to evaluate patient for [facility] eligibility determination. Shobha Matthews, FEATHER CURLING MACHINE OPERATOR
--- NOTE | 2023-08-01 18:24 | PC.NURSE ---
Pt has attempted to give urine sample multiple times. Either missing hat or having difficulty remembering how to ensure urine goes into hat. Will continue to attempt to obtain a urine sample for the urine drug screen.
--- NOTE | 2023-08-01 18:37 | PC.NURSE ---
Pt given a book at this time and warm blanket.
[2023-08-01 20:15] LABS: Ur Creatinine Normal (Normal); Ur Specific Gravity Normal (Normal); Urine pH Normal (Normal)
[2023-08-01 20:16] LABS: UR Morphine/Opiate cutoff 300 Negative (Negative); Urine Amphetamines Negative (Negative); Urine Barbiturates Negative (Negative); Urine Benzodiazepines Negative (Negative); Urine Cocaine Negative (Negative); Urine MDMA Negative (Negative); Urine Methadone Negative (Negative); Urine Methamphetamines Negative (Negative); Urine Oxycodone Negative (Negative); Urine Phencyclidine Negative (Negative); Urine Tetrahydrocannabinol Positive (Negative); Urine Tricyclic Antidepressant Positive (Negative)
--- NOTE | 2023-08-01 20:36 | PC.NURSE ---
DCR arrived and is with pt at this time. Daughter called for update and DCR will call both pts daughter and sister after he is done with pt interview/assessment.
[2023-08-01 22:01] VITALS: BP 144/71; PULSE 78; RESP 16; O2SAT 95
[2023-08-01] MEDS: QUETIAPINE 25 MG TABLET 200 MG PO (22:08)
[2023-08-01] MEDS: lamoTRIgine 100 MG TABLET 300 MG PO (22:08)
== END 2023-08-01 22:15 | disposition home or self-care (01) ==
PROVIDERS: Emergency Provider Emergency Medicine; Family Provider Nurse Practitioner; PCP Nurse Practitioner; Referring Provider Emergency Medicine
DX: F31.9 Bipolar disorder, unspecified (principal); I10 Essential (primary) hypertension; Z87.891 Personal history of nicotine dependence
CPT/HCPCS: 36415; 70450; 80053; 80305; 80320; 80329; 81001; 82140; 84443; 85025; 87635; 93005; 99284; G0480